=== PATIENT | male | born 1975 | race Caucasian/White ===

== ENCOUNTER 2018-06-24 07:39 | Emergency (ER) | payer SELFPAY ==
[~2018-06-24] VITALS: Ht 167.6 cm; Wt 63.5 kg
[~2018-06-24 07:39] MED LIST: AMIT25TA PO; TRAM50TA PO
[2018-06-24 08:00] VITALS: BP 124/90
--- NOTE | 2018-06-24 08:10 | PHYS DOC ---
Past Medical History Past Medical History: Other Additional Past Medical Histor: ULCERS, Cyclic vomiting syndrome Past Surgical History: Cholecystectomy Alcohol Use: None Drug Use: Marijuana Adult General Chief Complaint Chief Complaint: ABDOMINAL PAIN HPI HPI Patient is a 43 year old male presents for evaluation of vomiting since early this morning. He reports his had 3 or 4 episodes of emesis, has started to see some red blood streaks in the emesis. He has history of cyclic vomiting as well as gastric ulcers. Denies any dizziness or blood in stool. He reports some diffuse abdominal pain. Denies recent fevers or illness. Review of Systems Review of Systems Constitutional: Denies fever or chills [] Eyes: Denies change in visual acuity, redness, or eye pain [] HENT: Denies nasal congestion or sore throat [] Respiratory: Denies cough or shortness of breath [] Cardiovascular: No additional information not addressed in HPI [] GI: +VOMITING, ABD PAIN, HEMATEMESIS [] : Denies dysuria or hematuria [] Musculoskeletal: Denies back pain or joint pain [] Integument: Denies rash or skin lesions [] Neurologic: Denies headache, focal weakness or sensory changes [] Endocrine: Denies polyuria or polydipsia [] All other systems were reviewed and found to be within normal limits, except as documented in this note. Current Medications Current Medications Current Medications Medications (Trade) Dose Ordered Sig/Lauren Start Time Stop Time Status Last Admin Dose Admin Ciprofloxacin/ Dextrose 200 ml @ 200 mls/hr 1X ONCE 06/24/18 10:45 06/24/18 11:44 DC 06/24/18 11:02 200 MLS/HR Dicyclomine HCl (Bentyl) 20 mg 1X ONCE 06/24/18 08:15 06/24/18 08:16 DC 06/24/18 08:15 20 MG Haloperidol Lactate (Haldol Inj) 5 mg 1X ONCE 06/24/18 08:15 06/24/18 08:16 DC 06/24/18 08:15 5 MG Metoclopramide HCl (Reglan Vial) 10 mg 1X ONCE 06/24/18 08:15 06/24/18 08:16 DC 06/24/18 08:15 10 MG Metronidazole 100 ml @ 100 mls/hr 1X ONCE 06/24/18 10:45 06/24/18 11:44 DC 06/24/18 12:22 100 MLS/HR Sodium Chloride 1,000 ml @ 1,000 mls/hr 1X ONCE 06/24/18 08:15 06/24/18 09:14 DC 06/24/18 08:15 1,000 MLS/HR Allergies Allergies Allergies Coded Allergies Type Severity Reaction Last Updated Verified No Known Drug Allergies 09/25/15 No Physical Exam Physical Exam Constitutional: Well developed, well nourished, ILL APPEARING, UNCOMFORTABLE. [] HENT: Normocephalic, atraumatic, nose normal. [] Eyes: PERRLA, EOMI, conjunctiva normal, no discharge. [] Neck: Normal range of motion, no tenderness, supple, no stridor. [] Cardiovascular:Heart rate regular rhythm, no murmur [] Lungs & Thorax: Bilateral breath sounds clear to auscultation [] Abdomen: Bowel sounds normal, soft, LLQ TENDERNESS, no masses, no pulsatile masses. [] Skin: Warm, dry, no erythema, no rash, PALLOR. [] Neurologic: Alert and oriented X 3, normal motor function, normal sensory function, no focal deficits noted. [] Psychologic: Affect normal, judgement normal, mood normal. [] Current Patient Data Vital Signs Vital Signs Date Time Temp Pulse Resp B/P (MAP) Pulse Ox O2 Delivery O2 Flow Rate FiO2 06/24/18 08:00 97.9 102 16 124/90 (101) 100 Room Air 97.9 Lab Values Laboratory Tests Test 06/24/18 08:00 White Blood Count 18.7 x10^3/uL (4.0-11.0) H Red Blood Count 5.65 x10^6/uL (4.30-5.70) Hemoglobin 16.7 g/dL (13.0-17.5) Hematocrit 49.6 % (39.0-53.0) Mean Corpuscular Volume 88 fL (79-100) Mean Corpuscular Hemoglobin 30 pg (25-35) Mean Corpuscular Hemoglobin Concent 34 g/dL (31-37) Red Cell Distribution Width 13.6 % (11.5-14.5) Platelet Count 323 x10^3/uL (140-400) Neutrophils (%) (Auto) 90 % (31-73) H Lymphocytes (%) (Auto) 4 % (24-48) L Monocytes (%) (Auto) 6 % (0-9) Eosinophils (%) (Auto) 0 % (0-3) Basophils (%) (Auto) 0 % (0-3) Neutrophils # (Auto) 16.7 x10^3uL (1.8-7.7) H Lymphocytes # (Auto) 0.7 x10^3/uL (1.0-4.8) L Monocytes # (Auto) 1.2 x10^3/uL (0.0-1.1) H Eosinophils # (Auto) 0.0 x10^3/uL (0.0-0.7) Basophils # (Auto) 0.0 x10^3/uL (0.0-0.2) Segmented Neutrophils % 86 % (35-66) H Band Neutrophils % 2 % (0-9) Lymphocytes % 7 % (24-48) L Monocytes % 5 % (0-10) Platelet Estimate Adequate (ADEQUATE) Prothrombin Time 12.5 SEC (11.7-14.0) Prothrombin Time INR 1.0 (0.8-1.1) PTT 28 SEC (24-38) Sodium Level 142 mmol/L (136-145) Potassium Level 4.0 mmol/L (3.5-5.1) Chloride Level 102 mmol/L (98-107) Carbon Dioxide Level 23 mmol/L (21-32) Anion Gap 17 (6-14) H Blood Urea Nitrogen 26 mg/dL (8-26) Creatinine 1.6 mg/dL (0.7-1.3) H Estimated GFR (Cockcroft-Gault) 47.9 BUN/Creatinine Ratio 16 (6-20) Glucose Level 256 mg/dL (70-99) H Calcium Level 10.4 mg/dL (8.5-10.1) H Total Bilirubin 0.7 mg/dL (0.2-1.0) Aspartate Amino Transferase (AST) 17 U/L (15-37) Alanine Aminotransferase (ALT) 31 U/L (16-63) Alkaline Phosphatase 68 U/L (46-116) Total Protein 9.2 g/dL (6.4-8.2) H Albumin 5.1 g/dL (3.4-5.0) H Albumin/Globulin Ratio 1.2 (1.0-1.7) Lipase 56 U/L (73-393) L Acetone Level Neg (NEG) Laboratory Tests 06/24/18 08:00 Laboratory Tests 06/24/18 08:00 EKG EKG [] Radiology/Procedures Radiology/Procedures [REASON: abd pain, vomiting PROCEDURE: CT ABDOMEN PELVIS WO CONTRAST CT study of the abdomen and pelvis without contrast Clinical indications: Abdominal pain with nausea and vomiting. TECHNIQUE: Noncontrast helical CT scanning of the abdomen and pelvis was performed. Without contrast, the sensitivity to detect organ pathology and GI tract pathology is decreased. PQRS compliance Statement One or more of the following individualized dose reduction techniques were utilized for this study: 1. Automated exposure control 2. Adjustment of the mA and/or kV according to patient size 3. Use of iterative reconstruction technique COMPARISON: December 29, 2016. FINDINGS: The liver and spleen and pancreas are homogeneous in appearance on this noncontrast study. The gallbladder is normal and no extra hepatic biliary ductal dilatation is seen. No adrenal mass is evident. Small punctate nonobstructing stone of the upper pole of the left kidney is seen. No hydronephrosis or hydroureter is seen. Urinary bladder is not abnormally distended. No focal aneurysmal dilatation of the abdominal aorta is seen. No enlarged abdominal or pelvic lymphadenopathy is evident. The appendix is normal. No obstructive bowel pattern is evident. There is segmental wall thickening of the colon including the sigmoid colon and proximal and mid descending colon and splenic flexure and mid transverse colon. This could be due to incomplete distention but colitis is certainly possible. No free air or free fluid or mesenteric edema is seen. No lung base consolidation is evident. No lytic process is seen. IMPRESSION: Segmental wall thickening of the colon which could be due to incomplete distention or may be seen with colitis if there are clinical findings of such. No bowel obstruction or free air or free fluid is seen otherwise. The appendix is normal. Tiny punctate nonobstructing stone of the upper pole of the left kidney. Electronically signed by: Usman Rangel MD (06/24/2018 10:17 AM) [facility] DICTATED and SIGNED BY: USMAN RANGEL MD DATE: 06/24/18 1007 ] Course & Med Decision Making Course & Med Decision Making Pertinent Labs and Imaging studies reviewed. (See chart for details) [Patient was started on antibiotics for colitis, he is tolerating by mouth fluids and states he is feeling better, he does have a primary care physician, Dr. Rodney Quan and he will call on Tuesday to schedule follow-up appointment. Return to ER for new or worsening symptoms.] Diane Disclaimer Dragon Disclaimer This electronic medical record was generated, in whole or in part, using a voice recognition dictation system. Departure Departure Impression: Primary Impression: Colitis Additional Impressions: Chronic renal disease Vomiting Disposition: HOME, SELF-CARE Condition: STABLE Referrals: NO PCP (PCP) Patient Instructions: Colitis Scripts Ondansetron Hcl (ZOFRAN) 4 Mg Tablet 1 TAB PO Q6HRS, #20 TAB Prov: MATEO EDWARD APRN 06/24/18 Metronidazole (METRONIDAZOLE) 500 Mg Tablet 500 MG PO BID for 10 Days, #20 TAB Prov: MATEO EDWARD APRN 06/24/18 Ciprofloxacin Hcl (CIPRO) 500 Mg Tablet 1 TAB PO BID, #20 TAB Prov: MATEO EDWARD APRN 06/24/18 Problem Qualifiers MATEO EDWARD APRN Jun 24, 2018 08:10
[2018-06-24 08:14] LABS: BASO % 0 % (0-3); EOS % 0 % (0-3); HEMATOCRIT 49.6 % (39.0-53.0); HEMOGLOBIN 16.7 g/dL (13.0-17.5); LYMPH # 0.7 x10^3/uL (1.0-4.8); LYMPH % 4 % (24-48); MEAN CORPUSCULAR HEMOGLOBIN 30 pg (25-35); MEAN CORPUSCULAR HGB CONC 34 g/dL (31-37); MEAN CORPUSCULAR VOLUME 88 fL (79-100); MONO # 1.2 x10^3/uL (0.0-1.1); MONO % 6 % (0-9); NEUT # 16.7 x10^3uL (1.8-7.7); NEUT % 90 % (31-73); PLATELET COUNT 323 x10^3/uL (140-400); RED BLOOD COUNT 5.65 x10^6/uL (4.30-5.70); RED CELL DISTRIBUTION WIDTH 13.6 % (11.5-14.5); WHITE BLOOD COUNT 18.7 x10^3/uL (4.0-11.0)
[2018-06-24] MEDS ORDERED: METOCLOPRAMIDE HCL 10 MG/2 ML VIAL. IV ONE (08:15)
[2018-06-24] MEDS ORDERED: DICYCLOMINE 20 MG/2 ML AMPUL. IM ONE (08:15)
[2018-06-24] MEDS ORDERED: IV NORMAL SALINE 1000ML BAG 1,000 ML IV ONE (08:15)
[2018-06-24] MEDS ORDERED: HALOPERIDOL LACTATE 5 MG/ML VIAL. IVP ONE (08:15)
[2018-06-24 08:28] LABS: CALCIUM 10.4 mg/dL (8.5-10.1); CREATININE 1.6 mg/dL (0.7-1.3); GFR 47.9; PROTHROMBIN TIME PATIENT 12.5 SEC (11.7-14.0)
[2018-06-24 08:30] LABS: ALBUMIN 5.1 g/dL (3.4-5.0); ALBUMIN/GLOBULIN RATIO 1.2 (1.0-1.7); TOTAL BILIRUBIN 0.7 mg/dL (0.2-1.0); TOTAL PROTEIN 9.2 g/dL (6.4-8.2)
--- NOTE | 2018-06-24 10:22 | RAD ---
CT study of the abdomen and pelvis without contrast Clinical indications: Abdominal pain with nausea and vomiting. TECHNIQUE: Noncontrast helical CT scanning of the abdomen and pelvis was performed. Without contrast, the sensitivity to detect organ pathology and GI tract pathology is decreased. PQRS compliance Statement One or more of the following individualized dose reduction techniques were utilized for this study: 1. Automated exposure control 2. Adjustment of the mA and/or kV according to patient size 3. Use of iterative reconstruction technique COMPARISON: December 29, 2016. FINDINGS: The liver and spleen and pancreas are homogeneous in appearance on this noncontrast study. The gallbladder is normal and no extra hepatic biliary ductal dilatation is seen. No adrenal mass is evident. Small punctate nonobstructing stone of the upper pole of the left kidney is seen. No hydronephrosis or hydroureter is seen. Urinary bladder is not abnormally distended. No focal aneurysmal dilatation of the abdominal aorta is seen. No enlarged abdominal or pelvic lymphadenopathy is evident. The appendix is normal. No obstructive bowel pattern is evident. There is segmental wall thickening of the colon including the sigmoid colon and proximal and mid descending colon and splenic flexure and mid transverse colon. This could be due to incomplete distention but colitis is certainly possible. No free air or free fluid or mesenteric edema is seen. No lung base consolidation is evident. No lytic process is seen. IMPRESSION: Segmental wall thickening of the colon which could be due to incomplete distention or may be seen with colitis if there are clinical findings of such. No bowel obstruction or free air or free fluid is seen otherwise. The appendix is normal. Tiny punctate nonobstructing stone of the upper pole of the left kidney. Electronically signed by: Usman Rangel MD (06/24/2018 10:17 AM) [facility]
[2018-06-24] MEDS ORDERED: CIPROFLOXACIN 400MG PREMIX 200 ML IV ONE (10:45)
[2018-06-24] MEDS ORDERED: CIPR500T94 PO (11:04)
[2018-06-24] MEDS ORDERED: ONDA4TAB7 PO (11:04)
[2018-06-24] MEDS ORDERED: METR-84 PO (11:04)
[2018-06-24 11:33] LABS: % BANDS 2 % (0-9); % LYMPHS 7 % (24-48); % MONOS 5 % (0-10); % SEGS 86 % (35-66); PLT ESTIMATE ADEQUATE (ADEQUATE)
== END 2018-06-24 14:00 | disposition home or self-care (01) ==
LOC: ER 07:39
DX: K52.89 Other specified noninfective gastroenteritis and colitis (principal); N18.9 Chronic kidney disease, unspecified; K92.0 Hematemesis; Z90.49 Acquired absence of other specified parts of digestive tract
CPT/HCPCS: 36415; 74176; 80053; 82010; 83690; 85007; 85025; 85610; 85730; 96361; 96365; 96367; 96372; 96375; 99284; J0500; J0744; J1630; J2765; J3490; J7030

== ENCOUNTER 2018-10-20 20:02 | Observation (INO) | payer SELFPAY ==
[~2018-10-20] VITALS: Ht 167.6 cm; Wt 64.9 kg
[~2018-10-20 20:02] MED LIST changes: +CIPR500T94 PO; +METR-34 PO; +ONDA4TAB7 PO
--- NOTE | 2018-10-20 21:30 | PHYS DOC ---
Past Medical History Past Medical History: Other Additional Past Medical Histor: ULCERS, Cyclic vomiting syndrome Past Surgical History: Cholecystectomy Alcohol Use: None Drug Use: Marijuana Adult General Chief Complaint Chief Complaint: HEMATEMESIS/VOMITING BLOOD HPI HPI Patient is a 43 year old M who presents with vomiting. He says he has vomited 40 times today. Prior dx of cyclic vomiting. He says the top of his abd hurts, which is where he usually has pain. He had a streak of blood in his vomit which has also happened before. He reports having a normal EGD in the past after docs were concerned about ulcers. Pt denies drug use but per RN chart he admitted to smoking MJ today. Review of Systems Review of Systems Constitutional: Denies fever or chills Eyes: Denies change in visual acuity, redness, or eye pain HENT: Denies nasal congestion or sore throat Respiratory: Denies cough or shortness of breath Cardiovascular: No additional information not addressed in HPI GI: Endorses vomiting : Denies dysuria or hematuria Musculoskeletal: Denies back pain or joint pain Integument: Denies rash or skin lesions Neurologic: Denies headache, focal weakness or sensory changes All other systems were reviewed and found to be within normal limits, except as documented in this note. Current Medications Current Medications Current Medications Medications (Trade) Dose Ordered Sig/Lauren Start Time Stop Time Status Last Admin Dose Admin Diphenhydramine HCl (Benadryl) 25 mg 1X ONCE 10/20/18 22:00 10/20/18 22:01 DC 10/20/18 21:55 25 MG Haloperidol Lactate (Haldol Inj) 5 mg 1X ONCE 10/20/18 22:00 10/20/18 22:01 DC 10/20/18 21:55 5 MG Ondansetron HCl (Zofran) 4 mg 1X ONCE 10/20/18 22:00 10/20/18 22:01 DC 10/20/18 21:55 4 MG Sodium Chloride 1,000 ml @ 1,000 mls/hr 1X ONCE 10/20/18 22:00 10/20/18 22:59 DC 10/20/18 21:55 1,000 MLS/HR Allergies Allergies Allergies Coded Allergies Type Severity Reaction Last Updated Verified No Known Drug Allergies 09/25/15 No Physical Exam Physical Exam Constitutional: Well developed, well nourished, no acute distress, non-toxic appearance. HENT: Normocephalic, atraumatic, bilateral external ears normal, oropharynx moist, no oral exudates, nose normal. Eyes: PERRLA, EOMI, conjunctiva normal, no discharge. Neck: Normal range of motion, no tenderness, supple, no stridor. Cardiovascular:Heart rate regular rhythm, no murmur Lungs & Thorax: Bilateral breath sounds clear to auscultation Abdomen: Abd soft, epigastric ttp, non distended, no rebound, no guarding Skin: Warm, dry, no erythema, no rash. Back: No tenderness, no CVA tenderness. Extremities: No tenderness, no cyanosis, no clubbing, ROM intact, no edema. Neurologic: Alert and oriented X 3, normal motor function, normal sensory function, no focal deficits noted. Psychologic: Affect normal, judgement normal, mood normal. Current Patient Data Vital Signs Vital Signs Date Time Temp Pulse Resp B/P (MAP) Pulse Ox O2 Delivery O2 Flow Rate FiO2 10/20/18 22:45 90 31 144/83 (103) 100 Room Air 10/20/18 20:10 98.2 98.2 Lab Values Laboratory Tests Test 10/20/18 21:12 White Blood Count 23.8 x10^3/uL (4.0-11.0) H Red Blood Count 5.89 x10^6/uL (4.30-5.70) H Hemoglobin 17.3 g/dL (13.0-17.5) Hematocrit 50.8 % (39.0-53.0) Mean Corpuscular Volume 86 fL (79-100) Mean Corpuscular Hemoglobin 29 pg (25-35) Mean Corpuscular Hemoglobin Concent 34 g/dL (31-37) Red Cell Distribution Width 13.6 % (11.5-14.5) Platelet Count 314 x10^3/uL (140-400) Neutrophils (%) (Auto) 89 % (31-73) H Lymphocytes (%) (Auto) 3 % (24-48) L Monocytes (%) (Auto) 8 % (0-9) Eosinophils (%) (Auto) 0 % (0-3) Basophils (%) (Auto) 1 % (0-3) Neutrophils # (Auto) 21.1 x10^3uL (1.8-7.7) H Lymphocytes # (Auto) 0.7 x10^3/uL (1.0-4.8) L Monocytes # (Auto) 1.9 x10^3/uL (0.0-1.1) H Eosinophils # (Auto) 0.0 x10^3/uL (0.0-0.7) Basophils # (Auto) 0.1 x10^3/uL (0.0-0.2) Segmented Neutrophils % 88 % (35-66) H Lymphocytes % 5 % (24-48) L Monocytes % 7 % (0-10) Platelet Estimate Adequate (ADEQUATE) Large Platelets Occ Polychromasia Slight Anisocytosis Slight Sodium Level 131 mmol/L (136-145) L Potassium Level 4.0 mmol/L (3.5-5.1) Chloride Level 88 mmol/L (98-107) L Carbon Dioxide Level 24 mmol/L (21-32) Anion Gap 19 (6-14) H Blood Urea Nitrogen 60 mg/dL (8-26) H Creatinine 2.8 mg/dL (0.7-1.3) H Estimated GFR (Cockcroft-Gault) 25.1 BUN/Creatinine Ratio 21 (6-20) H Glucose Level 161 mg/dL (70-99) H Calcium Level 11.3 mg/dL (8.5-10.1) H Total Bilirubin 1.9 mg/dL (0.2-1.0) H Aspartate Amino Transferase (AST) 22 U/L (15-37) Alanine Aminotransferase (ALT) 30 U/L (16-63) Alkaline Phosphatase 75 U/L (46-116) Total Protein 9.2 g/dL (6.4-8.2) H Albumin 5.3 g/dL (3.4-5.0) H Albumin/Globulin Ratio 1.4 (1.0-1.7) Lipase 69 U/L (73-393) L Laboratory Tests 10/20/18 21:12 Laboratory Tests 10/20/18 21:12 EKG EKG [] Radiology/Procedures Radiology/Procedures [] Course & Med Decision Making Course & Med Decision Making Pertinent Labs and Imaging studies reviewed. (See chart for details) 43 y/o M presents for vomiting - h/o cyclic vomiting. Nontoxic appearing, abd exam benign. Treat with haldol, benadryl, zofran, NS bolus. CBC, CMP, Lipase, UA, UDS EKG: sinus tach 102 bpm, no ST elev or depr, nrml intervals, QTc 395. Admit for acute on chronic kidney failure and dehydration. Dragon Disclaimer Dragon Disclaimer This electronic medical record was generated, in whole or in part, using a voice recognition dictation system. Departure Departure Impression: Primary Impression: Nausea & vomiting Additional Impression: Acute on chronic renal failure Disposition: ADMITTED INPATIENT Admitting Physician: Dustin Dangelo Condition: STABLE Referrals: NO PCP (PCP) Problem Qualifiers NINFA MCLAUGHLIN MD October 20, 2018 21:30
[2018-10-20 21:38] LABS: BASO # 0.1 x10^3/uL (0.0-0.2); BASO % 1 % (0-3); EOS % 0 % (0-3); HEMATOCRIT 50.8 % (39.0-53.0); HEMOGLOBIN 17.3 g/dL (13.0-17.5); LYMPH # 0.7 x10^3/uL (1.0-4.8); LYMPH % 3 % (24-48); MEAN CORPUSCULAR HEMOGLOBIN 29 pg (25-35); MEAN CORPUSCULAR HGB CONC 34 g/dL (31-37); MEAN CORPUSCULAR VOLUME 86 fL (79-100); MONO # 1.9 x10^3/uL (0.0-1.1); MONO % 8 % (0-9); NEUT # 21.1 x10^3uL (1.8-7.7); NEUT % 89 % (31-73); PLATELET COUNT 314 x10^3/uL (140-400); RED BLOOD COUNT 5.89 x10^6/uL (4.30-5.70); RED CELL DISTRIBUTION WIDTH 13.6 % (11.5-14.5); WHITE BLOOD COUNT 23.8 x10^3/uL (4.0-11.0)
[2018-10-20 21:47] LABS: CALCIUM 11.3 mg/dL (8.5-10.1); CREATININE 2.8 mg/dL (0.7-1.3); GFR 25.1
[2018-10-20 21:53] LABS: ALBUMIN 5.3 g/dL (3.4-5.0); ALBUMIN/GLOBULIN RATIO 1.4 (1.0-1.7); TOTAL BILIRUBIN 1.9 mg/dL (0.2-1.0); TOTAL PROTEIN 9.2 g/dL (6.4-8.2)
[2018-10-20] MEDS ORDERED: IV NORMAL SALINE 1000ML BAG 1,000 ML IV ONE (22:00)
[2018-10-20] MEDS ORDERED: HALOPERIDOL LACTATE 5 MG/ML VIAL. IVP ONE (22:00)
[2018-10-20] MEDS ORDERED: diphenhydrAMINE 50 MG/ML VIAL IVP ONE (22:00)
[2018-10-20] MEDS ORDERED: ONDANSETRON PF 4 MG/2 ML VIAL. IV ONE (22:00)
[2018-10-20 22:56] LABS: % LYMPHS 5 % (24-48); % MONOS 7 % (0-10); % SEGS 88 % (35-66); ANISOCYTOSIS SLIGHT; PLT ESTIMATE ADEQUATE (ADEQUATE); POLYCHROMASIA SLIGHT
[2018-10-21] VITALS (7 sets, daily range): BP systolic 116–137; BP diastolic 67–89
--- NOTE | 2018-10-21 00:55 | NUR ---
The patient, SERGO MARIANO, 43 y/o, M admitted by MATIAS HOLMAN MD, was given written information regarding hospital policies, unit procedures and contact persons. Valuables were checked and left in the room. .
[2018-10-21] MEDS ORDERED: ACETAMINOPHEN 325 MG TABLET. PO PRN (01:00)
[2018-10-21] MEDS: ONDANSETRON PF 4 MG/2 ML VIAL. IV PRN ×3 (06:10→22:22)
--- NOTE | 2018-10-21 10:10 | PDOC1 ---
History and Physical Date of Admission Date of Admission DATE: 10/21/18 TIME: 10:10 Identification/Chief Complaint Chief Complaint seen in er, 43 year old M who presents with vomiting. He says he has vomited 40 times 10/20 . Prior dx of cyclic vomiting. He says the top of his abd hurts, which is where he usually has pain. He had a streak of blood in his vomit which has also happened before. He reports having a normal EGD in the past after docs were concerned about ulcers. Pt denies drug use but per RN chart he admitted to smoking MJ 10/20. NOTED TO [facility] IN ER Past Medical History Past Medical History Past Medical History Past Medical History Past Medical History: Other Additional Past Medical Histor: ULCERS, Cyclic vomiting syndrome Past Surgical History: Cholecystectomy Alcohol Use: None Drug Use: Marijuana family hx htn Cardiovascular: No pertinent hx Pulmonary: No pertinent hx GI: GERD, Other Psych: No pertinent hx Musculoskeletal: Osteoarthritis Infectious disease: No pertinent hx Renal/: No pertinent hx Endocrine: No pertinent hx Past Surgical History Past Surgical History: Other Family History Family History: No Significant, Hypertension Social History Smoke: <1 pack per day ALCOHOL: none Drugs: Marijuana Current Problem List Problem List Problems Medical Problems: (1) Acute on chronic renal failure Status: Acute Current Medications Current Medications Current Medications Ondansetron HCl (Zofran) 4 mg 1X ONCE IV Last administered on 10/20/18at 21:55; Start 10/20/18 at 22:00; Stop 10/20/18 at 22:01; Status DC Haloperidol Lactate (Haldol Inj) 5 mg 1X ONCE IVP Last administered on 10/20/18at 21:55; Start 10/20/18 at 22:00; Stop 10/20/18 at 22:01; Status DC Diphenhydramine HCl (Benadryl) 25 mg 1X ONCE IVP Last administered on 10/20/18at 21:55; Start 10/20/18 at 22:00; Stop 10/20/18 at 22:01; Status DC Sodium Chloride 1,000 ml @ 1,000 mls/hr 1X ONCE IV Last administered on 10/20/18at 21:55; Start 10/20/18 at 22:00; Stop 10/20/18 at 22:59; Status DC Acetaminophen (Tylenol) 650 mg PRN Q6HRS PRN PO fever Last administered on 10/21/18at 00:59; Start 10/21/18 at 01:00 Ondansetron HCl (Zofran) 4 mg PRN Q6HRS PRN IV NAUSEA/VOMITING 1ST CHOICE Last administered on 10/21/18at 06:10; Start 10/21/18 at 01:00 Active Scripts Active Zofran (Ondansetron Hcl) 4 Mg Tablet 1 Tab PO Q6HRS Metronidazole 500 Mg Tablet 500 Mg PO BID 10 Days Cipro (Ciprofloxacin Hcl) 500 Mg Tablet 1 Tab PO BID Allergies Allergies: Coded Allergies: No Known Drug Allergies (Unverified , 09/25/15) ROS Review of System Review of Systems Review of Systems Constitutional: MILD fever or chills Eyes: Denies change in visual acuity, redness, or eye pain HENT: Denies nasal congestion or sore throat Respiratory: Denies cough or shortness of breath Cardiovascular: No additional information not addressed in HPI GI: Endorses vomiting : Denies dysuria or hematuria Musculoskeletal: Denies back pain or joint pain Integument: Denies rash or skin lesions Neurologic: Denies headache, focal weakness or sensory changes 14 pt systems were reviewed and found to be within normal limits, except as documented Hematological and Lymphatic: No: Bleeding Problems, Blood Clots, Blood Transfusions, Brusing, Night Sweats, Pallor, Swollen Lymph Nodes, Other Cardiovascular: No Chest Pain, No Palpitations, No Orthopnea, No Paroxysmal Noc. Dyspnea, No Edema, No Lt Headedness, No Other Gastrointestinal: Yes Nausea, Yes Vomiting, Yes Abdominal Pain Musculoskeletal: No Gait Disturbance, No Joint Pain, No Joint Stiffness, No Joint Swelling, No Muscle Pain, No Muscular Weakness, No Pain In:, No Swelling In:, No Other Physical Exam Physical Exam Physical Exam Physical Exam Constitutional: Well developed, well nourished, MILD acute distress, non-toxic appearance. HENT: Normocephalic, atraumatic, bilateral external ears normal, oropharynx moist, no oral exudates, nose normal. Eyes: PERRLA, EOMI, conjunctiva normal, no discharge. Neck: Normal range of motion, no tenderness, supple, no stridor. Cardiovascular:Heart rate regular rhythm, no murmur Lungs & Thorax: Bilateral breath sounds clear to auscultation Abdomen: Abd soft, epigastric ttp, non distended, no rebound, no guarding Skin: Warm, dry, no erythema, no rash. Back: No tenderness, no CVA tenderness. Extremities: No tenderness, no cyanosis, no clubbing, ROM intact, no edema. Neurologic: Alert and oriented X 3, normal motor function, normal sensory function, no focal deficits noted. Psychologic: Affect normal, judgement normal, mood normal. General: Oriented X3, Cooperative, mild distress HEENT: Atraumatic, PERRLA Abdomen: Normal bowel sounds Extremities: No cyanosis Neuro: Normal speech, Cranial nerves 3-12 NL Psych/Mental Status: Mental status NL, Mood NL Vitals Vitals Vital Signs Date Time Temp Pulse Resp B/P (MAP) Pulse Ox O2 Delivery O2 Flow Rate FiO2 10/21/18 08:00 Room Air 10/21/18 07:00 96.9 80 18 137/81 (99) 93 96.9 Labs Labs Laboratory Tests Test 10/20/18 21:12 White Blood Count 23.8 x10^3/uL (4.0-11.0) Red Blood Count 5.89 x10^6/uL (4.30-5.70) Hemoglobin 17.3 g/dL (13.0-17.5) Hematocrit 50.8 % (39.0-53.0) Mean Corpuscular Volume 86 fL (79-100) Mean Corpuscular Hemoglobin 29 pg (25-35) Mean Corpuscular Hemoglobin Concent 34 g/dL (31-37) Red Cell Distribution Width 13.6 % (11.5-14.5) Platelet Count 314 x10^3/uL (140-400) Neutrophils (%) (Auto) 89 % (31-73) Lymphocytes (%) (Auto) 3 % (24-48) Monocytes (%) (Auto) 8 % (0-9) Eosinophils (%) (Auto) 0 % (0-3) Basophils (%) (Auto) 1 % (0-3) Neutrophils # (Auto) 21.1 x10^3uL (1.8-7.7) Lymphocytes # (Auto) 0.7 x10^3/uL (1.0-4.8) Monocytes # (Auto) 1.9 x10^3/uL (0.0-1.1) Eosinophils # (Auto) 0.0 x10^3/uL (0.0-0.7) Basophils # (Auto) 0.1 x10^3/uL (0.0-0.2) Segmented Neutrophils % 88 % (35-66) Lymphocytes % 5 % (24-48) Monocytes % 7 % (0-10) Platelet Estimate Adequate (ADEQUATE) Large Platelets Occ Polychromasia Slight Anisocytosis Slight Sodium Level 131 mmol/L (136-145) Potassium Level 4.0 mmol/L (3.5-5.1) Chloride Level 88 mmol/L (98-107) Carbon Dioxide Level 24 mmol/L (21-32) Anion Gap 19 (6-14) Blood Urea Nitrogen 60 mg/dL (8-26) Creatinine 2.8 mg/dL (0.7-1.3) Estimated GFR (Cockcroft-Gault) 25.1 BUN/Creatinine Ratio 21 (6-20) Glucose Level 161 mg/dL (70-99) Calcium Level 11.3 mg/dL (8.5-10.1) Total Bilirubin 1.9 mg/dL (0.2-1.0) Aspartate Amino Transf (AST/SGOT) 22 U/L (15-37) Alanine Aminotransferase (ALT/SGPT) 30 U/L (16-63) Alkaline Phosphatase 75 U/L (46-116) Total Protein 9.2 g/dL (6.4-8.2) Albumin 5.3 g/dL (3.4-5.0) Albumin/Globulin Ratio 1.4 (1.0-1.7) Lipase 69 U/L (73-393) Laboratory Tests Test 10/20/18 21:12 White Blood Count 23.8 x10^3/uL (4.0-11.0) Red Blood Count 5.89 x10^6/uL (4.30-5.70) Hemoglobin 17.3 g/dL (13.0-17.5) Hematocrit 50.8 % (39.0-53.0) Mean Corpuscular Volume 86 fL (79-100) Mean Corpuscular Hemoglobin 29 pg (25-35) Mean Corpuscular Hemoglobin Concent 34 g/dL (31-37) Red Cell Distribution Width 13.6 % (11.5-14.5) Platelet Count 314 x10^3/uL (140-400) Neutrophils (%) (Auto) 89 % (31-73) Lymphocytes (%) (Auto) 3 % (24-48) Monocytes (%) (Auto) 8 % (0-9) Eosinophils (%) (Auto) 0 % (0-3) Basophils (%) (Auto) 1 % (0-3) Neutrophils # (Auto) 21.1 x10^3uL (1.8-7.7) Lymphocytes # (Auto) 0.7 x10^3/uL (1.0-4.8) Monocytes # (Auto) 1.9 x10^3/uL (0.0-1.1) Eosinophils # (Auto) 0.0 x10^3/uL (0.0-0.7) Basophils # (Auto) 0.1 x10^3/uL (0.0-0.2) Segmented Neutrophils % 88 % (35-66) Lymphocytes % 5 % (24-48) Monocytes % 7 % (0-10) Platelet Estimate Adequate (ADEQUATE) Large Platelets Occ Polychromasia Slight Anisocytosis Slight Sodium Level 131 mmol/L (136-145) Potassium Level 4.0 mmol/L (3.5-5.1) Chloride Level 88 mmol/L (98-107) Carbon Dioxide Level 24 mmol/L (21-32) Anion Gap 19 (6-14) Blood Urea Nitrogen 60 mg/dL (8-26) Creatinine 2.8 mg/dL (0.7-1.3) Estimated GFR (Cockcroft-Gault) 25.1 BUN/Creatinine Ratio 21 (6-20) Glucose Level 161 mg/dL (70-99) Calcium Level 11.3 mg/dL (8.5-10.1) Total Bilirubin 1.9 mg/dL (0.2-1.0) Aspartate Amino Transf (AST/SGOT) 22 U/L (15-37) Alanine Aminotransferase (ALT/SGPT) 30 U/L (16-63) Alkaline Phosphatase 75 U/L (46-116) Total Protein 9.2 g/dL (6.4-8.2) Albumin 5.3 g/dL (3.4-5.0) Albumin/Globulin Ratio 1.4 (1.0-1.7) Lipase 69 U/L (73-393) Images Images CT study of the abdomen and pelvis without contrast Clinical indications: Abdominal pain with nausea and vomiting. TECHNIQUE: Noncontrast helical CT scanning of the abdomen and pelvis was performed. Without contrast, the sensitivity to detect organ pathology and GI tract pathology is decreased. PQRS compliance Statement One or more of the following individualized dose reduction techniques were utilized for this study: 1. Automated exposure control 2. Adjustment of the mA and/or kV according to patient size 3. Use of iterative reconstruction technique COMPARISON: December 29, 2016. FINDINGS: The liver and spleen and pancreas are homogeneous in appearance on this noncontrast study. The gallbladder is normal and no extra hepatic biliary ductal dilatation is seen. No adrenal mass is evident. Small punctate nonobstructing stone of the upper pole of the left kidney is seen. No hydronephrosis or hydroureter is seen. Urinary bladder is not abnormally distended. No focal aneurysmal dilatation of the abdominal aorta is seen. No enlarged abdominal or pelvic lymphadenopathy is evident. The appendix is normal. No obstructive bowel pattern is evident. There is segmental wall thickening of the colon including the sigmoid colon and proximal and mid descending colon and splenic flexure and mid transverse colon. This could be due to incomplete distention but colitis is certainly possible. No free air or free fluid or mesenteric edema is seen. No lung base consolidation is evident. No lytic process is seen. IMPRESSION: Segmental wall thickening of the colon which could be due to incomplete distention or may be seen with colitis if there are clinical findings of such. No bowel obstruction or free air or free fluid is seen otherwise. The appendix is normal. Tiny punctate nonobstructing stone of the upper pole of the left kidney. Electronically signed by: Steve Rangel MD (06/24/2018 10:17 AM) [facility] DICTATED and SIGNED BY: STEVE RANGEL MD DATE: 06/24/18 1007 VTE Prophylaxis Ordered VTE Prophylaxis Devices: Yes VTE Pharmacological Prophylaxi: Yes Assessment/Plan Assessment/Plan Impression: Nausea & vomiting INTRACTABLE Acute on chronic renal failure THC ABUSE HX Colitis , nonspecific ABD PAIN, CONCERN FOR PUD LEUKOCYTOSIS ADMITTED iv fluid support iv zofran q 4 hrs prn GI CONSULT IV PROTONIX AVOID THC AM LABS CT ABD/PELVIS, TODAY NO NSAIDS DVT PROPHYLAXIS Nephrology consult 73 MIN PT EXAM, CHART REVIEW, > 50% OF TIME SPENT WITH EXAM, CHART REVIEW, PT CARE COORDINATION MATIAS HOLMAN MD October 21, 2018 10:10
[2018-10-21] MEDS ORDERED: IV NORMAL SALINE 1000ML BAG 1,000 ML IV ONE (11:15)
[2018-10-21] MEDS: IV NORMAL SALINE 1000ML BAG 1,000 ML IV SCH ×2 (11:30→12:00)
[2018-10-21] MEDS: PANTOPRAZOLE IV PUSH 40 MG VIAL. IVP SCH (11:33)
[2018-10-21] MEDS: ENOXAPARIN 30 MG/0.3 ML SYRINGE. SQ SCH (11:33)
[2018-10-21] MEDS: fentaNYL PF VIAL 100 MCG/2 ML VIAL IV PRN ×4 (11:34→22:22)
--- NOTE | 2018-10-21 13:54 | PDOC2 ---
CONSULT Date of Consult Date of Consult DATE: 10/21/18 TIME: 13:51 Reason for Consult Reason for Consult: Acute renal failure Referring Physician Referring Physician: Dr. Gerard Identification/Chief Complaint Chief Complaint Nausea vomiting Source Source: Chart review, Patient History of Present Illness Reason for Visit: 43-year-old gentleman with known history of cyclical vomiting associated with marijuana use. Presented to the ER after he claims he more vomited almost 40 times over the last few days. He does take occasional NSAIDs as well as calcium-based antacids. He says the top of his abd hurts, which is where he usually has pain. He had a streak of blood in his vomit which has also happened before. He reported to the ER about having a normal EGD in the past. He denies known history of renal insufficiency per se. Past Medical History Cardiovascular: No pertinent hx Pulmonary: No pertinent hx GI: GERD, Other Psych: No pertinent hx Musculoskeletal: Osteoarthritis Infectious disease: No pertinent hx Renal/: No pertinent hx Endocrine: No pertinent hx Past Surgical History Past Surgical History: Other Family History Family History: No Significant, Hypertension Social History <1 pack per day ALCOHOL: none Drugs: Marijuana Current Problem List Problem List Problems Medical Problems: (1) Acute on chronic renal failure Status: Acute Current Medications Current Medications Current Medications Ondansetron HCl (Zofran) 4 mg 1X ONCE IV Last administered on 10/20/18at 21:55; Start 10/20/18 at 22:00; Stop 10/20/18 at 22:01; Status DC Haloperidol Lactate (Haldol Inj) 5 mg 1X ONCE IVP Last administered on 10/20/18 21:55; Start 10/20/18 at 22:00; Stop 10/20/18 at 22:01; Status DC Diphenhydramine HCl (Benadryl) 25 mg 1X ONCE IVP Last administered on 10/20/18at 21:55; Start 10/20/18 at 22:00; Stop 10/20/18 at 22:01; Status DC Sodium Chloride 1,000 ml @ 1,000 mls/hr 1X ONCE IV Last administered on 10/20/18at 21:55; Start 10/20/18 at 22:00; Stop 10/20/18 at 22:59; Status DC Acetaminophen (Tylenol) 650 mg PRN Q6HRS PRN PO fever Last administered on 10/21/18 00:59; Start 10/21/18 at 01:00 Ondansetron HCl (Zofran) 4 mg PRN Q6HRS PRN IV NAUSEA/VOMITING 1ST CHOICE Last administered on 10/21/18 11:33; Start 10/21/18 at 01:00 Sodium Chloride 1,000 ml @ 125 mls/hr 1X ONCE IV Last administered on 10/21/18 11:34; Start 10/21/18 at 11:15; Stop 10/21/18 at 19:14 Fentanyl Citrate (Fentanyl 2ml Vial) 50 mcg PRN Q3HRS PRN IV PAIN Last administered on 10/21/18 11:34; Start 10/21/18 at 11:15 Enoxaparin Sodium (Lovenox 30mg Syringe) 30 mg Q24H SQ Last administered on 10/21/18 11:33; Start 10/21/18 at 12:00 Pantoprazole Sodium (PROTONIX VIAL for IV PUSH) 40 mg DAILYAC IVP Last administered on 10/21/18 11:33; Start 10/21/18 at 12:00 Sodium Chloride 1,000 ml @ 2,000 mls/hr Q30M IV ; Start 10/21/18 at 11:30; Stop 10/21/18 at 12:23; Status DC Active Scripts Active Zofran (Ondansetron Hcl) 4 Mg Tablet 1 Tab PO Q6HRS Metronidazole 500 Mg Tablet 500 Mg PO BID 10 Days Cipro (Ciprofloxacin Hcl) 500 Mg Tablet 1 Tab PO BID Allergies Allergies: Coded Allergies: No Known Drug Allergies (Unverified , 09/25/15) ROS Review of System As per history of present illness Physical Exam Physical Exam GEN: Awake, Oriented x 3, In no distress EYES: Vision Unchanged, Conjunctiva Normal EN: No EN Drainage, Mucous Membranes moist NECK: no JVD, no JVP, Supple, no Thyromegaly CVS: S1S2, no Murmur, No Gallop, No Rub,no Edema RESP: no Rales, no Rhonchi,no Acc. Muscle Use GI: BS + ve, NO Bruit, Non Tender, Non Distended : no CVA tenderness, no Suprapubic Tenderness Vital Signs Vital Signs Date Time Temp Pulse Resp B/P (MAP) Pulse Ox O2 Delivery O2 Flow Rate FiO2 10/21/18 11:34 Room Air 10/21/18 11:00 98.8 88 18 136/89 (105) 96 98.8 Assessment & Plan Acute kidney injury: Suspect volume depletion associated with nausea vomiting. Continue IV fluids as you've ordered. Hypercalcemia suspected early due to severe intravascular volume depletion continue IV fluids and reevaluate. Antacid use may have contributed to the same. Volume depletion: IV fluids as you're doing watch trend. Urine outputs picking up Labs Labs Laboratory Tests Test 10/20/18 21:12 White Blood Count 23.8 x10^3/uL (4.0-11.0) Red Blood Count 5.89 x10^6/uL (4.30-5.70) Hemoglobin 17.3 g/dL (13.0-17.5) Hematocrit 50.8 % (39.0-53.0) Mean Corpuscular Volume 86 fL (79-100) Mean Corpuscular Hemoglobin 29 pg (25-35) Mean Corpuscular Hemoglobin Concent 34 g/dL (31-37) Red Cell Distribution Width 13.6 % (11.5-14.5) Platelet Count 314 x10^3/uL (140-400) Neutrophils (%) (Auto) 89 % (31-73) Lymphocytes (%) (Auto) 3 % (24-48) Monocytes (%) (Auto) 8 % (0-9) Eosinophils (%) (Auto) 0 % (0-3) Basophils (%) (Auto) 1 % (0-3) Neutrophils # (Auto) 21.1 x10^3uL (1.8-7.7) Lymphocytes # (Auto) 0.7 x10^3/uL (1.0-4.8) Monocytes # (Auto) 1.9 x10^3/uL (0.0-1.1) Eosinophils # (Auto) 0.0 x10^3/uL (0.0-0.7) Basophils # (Auto) 0.1 x10^3/uL (0.0-0.2) Segmented Neutrophils % 88 % (35-66) Lymphocytes % 5 % (24-48) Monocytes % 7 % (0-10) Platelet Estimate Adequate (ADEQUATE) Large Platelets Occ Polychromasia Slight Anisocytosis Slight Sodium Level 131 mmol/L (136-145) Potassium Level 4.0 mmol/L (3.5-5.1) Chloride Level 88 mmol/L (98-107) Carbon Dioxide Level 24 mmol/L (21-32) Anion Gap 19 (6-14) Blood Urea Nitrogen 60 mg/dL (8-26) Creatinine 2.8 mg/dL (0.7-1.3) Estimated GFR (Cockcroft-Gault) 25.1 BUN/Creatinine Ratio 21 (6-20) Glucose Level 161 mg/dL (70-99) Calcium Level 11.3 mg/dL (8.5-10.1) Total Bilirubin 1.9 mg/dL (0.2-1.0) Aspartate Amino Transf (AST/SGOT) 22 U/L (15-37) Alanine Aminotransferase (ALT/SGPT) 30 U/L (16-63) Alkaline Phosphatase 75 U/L (46-116) Total Protein 9.2 g/dL (6.4-8.2) Albumin 5.3 g/dL (3.4-5.0) Albumin/Globulin Ratio 1.4 (1.0-1.7) Lipase 69 U/L (73-393) Laboratory Tests Test 10/20/18 21:12 White Blood Count 23.8 x10^3/uL (4.0-11.0) Red Blood Count 5.89 x10^6/uL (4.30-5.70) Hemoglobin 17.3 g/dL (13.0-17.5) Hematocrit 50.8 % (39.0-53.0) Mean Corpuscular Volume 86 fL (79-100) Mean Corpuscular Hemoglobin 29 pg (25-35) Mean Corpuscular Hemoglobin Concent 34 g/dL (31-37) Red Cell Distribution Width 13.6 % (11.5-14.5) Platelet Count 314 x10^3/uL (140-400) Neutrophils (%) (Auto) 89 % (31-73) Lymphocytes (%) (Auto) 3 % (24-48) Monocytes (%) (Auto) 8 % (0-9) Eosinophils (%) (Auto) 0 % (0-3) Basophils (%) (Auto) 1 % (0-3) Neutrophils # (Auto) 21.1 x10^3uL (1.8-7.7) Lymphocytes # (Auto) 0.7 x10^3/uL (1.0-4.8) Monocytes # (Auto) 1.9 x10^3/uL (0.0-1.1) Eosinophils # (Auto) 0.0 x10^3/uL (0.0-0.7) Basophils # (Auto) 0.1 x10^3/uL (0.0-0.2) Segmented Neutrophils % 88 % (35-66) Lymphocytes % 5 % (24-48) Monocytes % 7 % (0-10) Platelet Estimate Adequate (ADEQUATE) Large Platelets Occ Polychromasia Slight Anisocytosis Slight Sodium Level 131 mmol/L (136-145) Potassium Level 4.0 mmol/L (3.5-5.1) Chloride Level 88 mmol/L (98-107) Carbon Dioxide Level 24 mmol/L (21-32) Anion Gap 19 (6-14) Blood Urea Nitrogen 60 mg/dL (8-26) Creatinine 2.8 mg/dL (0.7-1.3) Estimated GFR (Cockcroft-Gault) 25.1 BUN/Creatinine Ratio 21 (6-20) Glucose Level 161 mg/dL (70-99) Calcium Level 11.3 mg/dL (8.5-10.1) Total Bilirubin 1.9 mg/dL (0.2-1.0) Aspartate Amino Transf (AST/SGOT) 22 U/L (15-37) Alanine Aminotransferase (ALT/SGPT) 30 U/L (16-63) Alkaline Phosphatase 75 U/L (46-116) Total Protein 9.2 g/dL (6.4-8.2) Albumin 5.3 g/dL (3.4-5.0) Albumin/Globulin Ratio 1.4 (1.0-1.7) Lipase 69 U/L (73-393) Review All relevant outside records, renal labs, imaging studies, telemetry/EKG's were reviewed. RUI CHOW MD October 21, 2018 13:54
[2018-10-21] MEDS ORDERED: MAGNESIUM SULFATE 2GM 50 ML IV PRN (14:00)
--- NOTE | 2018-10-21 15:40 | PDOC2 ---
GI CONSULT Reason For Consult: N/V HPI: HPI: 43 year old M who presents with vomiting. He says he has vomited 40 times 10/20 . Prior dx of cyclic vomiting. He says the top of his abd hurts, which is where he usually has pain. He had a streak of blood in his vomit which has also happened before. He reports having a normal EGD in the past after docs were concerned about ulcers. Pt denies drug use but per RN chart he admitted to smoking MJ 10/20. NOTED TO HAVE KOBE IN ER PMH: PMH: Past Medical History Past Medical History: Other Additional Past Medical Histor: ULCERS, Cyclic vomiting syndrome Past Surgical History: Cholecystectomy Alcohol Use: None Drug Use: Marijuana Cardiovascular: No pertinent hx Pulmonary: No pertinent hx GI: GERD, cyclical vomiting Psych: No pertinent hx Musculoskeletal: Osteoarthritis Infectious disease: No pertinent hx Renal/: No pertinent hx Endocrine: No pertinent hx Past Surgical History Past Surgical History: rolly Family History Family History: No Significant, Hypertension Social History Smoke: <1 pack per day ALCOHOL: none Drugs: Marijuana Current Medications Ondansetron HCl (Zofran) 4 mg 1X ONCE IV Last administered on 10/20/18at 21:55; Start 10/20/18 at 22:00; Stop 10/20/18 at 22:01; Status DC Haloperidol Lactate (Haldol Inj) 5 mg 1X ONCE IVP Last administered on 10/20/18 21:55; Start 10/20/18 at 22:00; Stop 10/20/18 at 22:01; Status DC Diphenhydramine HCl (Benadryl) 25 mg 1X ONCE IVP Last administered on 10/20/18 21:55; Start 10/20/18 at 22:00; Stop 10/20/18 at 22:01; Status DC Sodium Chloride 1,000 ml @ 1,000 mls/hr 1X ONCE IV Last administered on 10/20/18at 21:55; Start 10/20/18 at 22:00; Stop 10/20/18 at 22:59; Status DC Acetaminophen (Tylenol) 650 mg PRN Q6HRS PRN PO fever Last administered on 10/21/18at 00:59; Start 10/21/18 at 01:00 Ondansetron HCl (Zofran) 4 mg PRN Q6HRS PRN IV NAUSEA/VOMITING 1ST CHOICE Last administered on 10/21/18at 06:10; Start 10/21/18 at 01:00 Active Scripts Active Zofran (Ondansetron Hcl) 4 Mg Tablet 1 Tab PO Q6HRS Metronidazole 500 Mg Tablet 500 Mg PO BID 10 Days Cipro (Ciprofloxacin Hcl) 500 Mg Tablet 1 Tab PO BID Allergies Allergies: Coded Allergies: No Known Drug Allergies (Unverified , 09/25/15) Social History: Smoke: <1 pack per day ALCOHOL: none Drugs: Marijuana ROS: 14 pt systems were reviewed and found to be within normal limits, except as documented Hematological and Lymphatic: No: Bleeding Problems, Blood Clots, Blood Transfusions, Brusing, Night Sweats, Pallor, Swollen Lymph Nodes, Other Cardiovascular: No Chest Pain, No Palpitations, No Orthopnea, No Paroxysmal Noc. Dyspnea, No Edema, No Lt Headedness, No Other Gastrointestinal: Yes Nausea, Yes Vomiting, Yes Abdominal Pain Musculoskeletal: No Gait Disturbance, No Joint Pain, No Joint Stiffness, No Joint Swelling, No Muscle Pain, No Muscular Weakness, No Pain In:, No Swelling In:, No Other VItals: Vitals: Vital Signs Date Time Temp Pulse Resp B/P (MAP) Pulse Ox O2 Delivery O2 Flow Rate FiO2 10/21/18 15:21 Room Air 10/21/18 15:00 98.1 75 18 116/87 (97) 97 98.1 Labs: Labs: Laboratory Tests Test 10/20/18 21:12 White Blood Count 23.8 x10^3/uL (4.0-11.0) Red Blood Count 5.89 x10^6/uL (4.30-5.70) Hemoglobin 17.3 g/dL (13.0-17.5) Hematocrit 50.8 % (39.0-53.0) Mean Corpuscular Volume 86 fL (79-100) Mean Corpuscular Hemoglobin 29 pg (25-35) Mean Corpuscular Hemoglobin Concent 34 g/dL (31-37) Red Cell Distribution Width 13.6 % (11.5-14.5) Platelet Count 314 x10^3/uL (140-400) Neutrophils (%) (Auto) 89 % (31-73) Lymphocytes (%) (Auto) 3 % (24-48) Monocytes (%) (Auto) 8 % (0-9) Eosinophils (%) (Auto) 0 % (0-3) Basophils (%) (Auto) 1 % (0-3) Neutrophils # (Auto) 21.1 x10^3uL (1.8-7.7) Lymphocytes # (Auto) 0.7 x10^3/uL (1.0-4.8) Monocytes # (Auto) 1.9 x10^3/uL (0.0-1.1) Eosinophils # (Auto) 0.0 x10^3/uL (0.0-0.7) Basophils # (Auto) 0.1 x10^3/uL (0.0-0.2) Segmented Neutrophils % 88 % (35-66) Lymphocytes % 5 % (24-48) Monocytes % 7 % (0-10) Platelet Estimate Adequate (ADEQUATE) Large Platelets Occ Polychromasia Slight Anisocytosis Slight Sodium Level 131 mmol/L (136-145) Potassium Level 4.0 mmol/L (3.5-5.1) Chloride Level 88 mmol/L (98-107) Carbon Dioxide Level 24 mmol/L (21-32) Anion Gap 19 (6-14) Blood Urea Nitrogen 60 mg/dL (8-26) Creatinine 2.8 mg/dL (0.7-1.3) Estimated GFR (Cockcroft-Gault) 25.1 BUN/Creatinine Ratio 21 (6-20) Glucose Level 161 mg/dL (70-99) Calcium Level 11.3 mg/dL (8.5-10.1) Total Bilirubin 1.9 mg/dL (0.2-1.0) Aspartate Amino Transf (AST/SGOT) 22 U/L (15-37) Alanine Aminotransferase (ALT/SGPT) 30 U/L (16-63) Alkaline Phosphatase 75 U/L (46-116) Total Protein 9.2 g/dL (6.4-8.2) Albumin 5.3 g/dL (3.4-5.0) Albumin/Globulin Ratio 1.4 (1.0-1.7) Lipase 69 U/L (73-393) Imaging: Imaging: CT A/P pending PE: Physical Exam Physical Exam Constitutional: Well developed, well nourished, MILD acute distress, non-toxic appearance. HENT: Normocephalic, atraumatic, bilateral external ears normal, oropharynx moist, no oral exudates, nose normal. Eyes: PERRLA, EOMI, conjunctiva normal, no discharge. Neck: Normal range of motion, no tenderness, supple, no stridor. Cardiovascular:Heart rate regular rhythm, no murmur Lungs & Thorax: Bilateral breath sounds clear to auscultation Abdomen: Abd soft, epigastric ttp, non distended, no rebound, no guarding Skin: Warm, dry, no erythema, no rash. Back: No tenderness, no CVA tenderness. Extremities: No tenderness, no cyanosis, no clubbing, ROM intact, no edema. Neurologic: Alert and oriented X 3, normal motor function, normal sensory function, no focal deficits noted. Psychologic: Affect normal, judgement normal, mood normal. A/P: A/P: A) 1) N/V 2) Abd pain 3) PMH cyclical vomiting with expected leukocytosis 4) Elevated bilirubin P 1) Await CT 2) Continue IV hydration and meds DEVIN MARTINS MD October 21, 2018 15:40
--- NOTE | 2018-10-21 21:29 | RAD ---
CT study of the abdomen and pelvis without contrast Clinical indications: Abdominal pain. TECHNIQUE: Noncontrast helical CT scanning of the abdomen and pelvis was performed. Without contrast, the sensitivity to detect organ pathology and GI tract pathology is decreased. PQRS compliance Statement One or more of the following individualized dose reduction techniques were utilized for this study: 1. Automated exposure control 2. Adjustment of the mA and/or kV according to patient size 3. Use of iterative reconstruction technique COMPARISON: June 24, 2018. FINDINGS: The liver and spleen are homogeneous in appearance on this noncontrast day. There is focal enlargement of the posterior body of the pancreas. The gallbladder is surgically absent. No extra hepatic biliary ductal dilatation is seen. No adrenal mass is evident. Tiny punctate nonobstructing stone of the upper pole of the left kidney is again evident. No hydronephrosis or hydroureter or ureteral stone is evident. Urinary bladder wall is smooth. No focal aneurysmal dilatation of the abdominal aorta is seen. No enlarged abdominal or pelvic lymphadenopathy is evident. Sigmoid diverticulosis is seen without diverticulitis. The appendix is normal. The terminal ileum is unremarkable. No obstructive bowel pattern is evident. No free intraperitoneal air or free fluid or edema is seen. No lung base consolidation is evident. No lytic process. IMPRESSION: No acute abnormality of the abdomen or pelvis. Nonobstructing stone of the left kidney. Sigmoid diverticulosis without diverticulitis. There is focal enlargement of the posterior body of the pancreas. No peripancreatic inflammatory change or free fluid or pseudocyst is seen. Recommend outpatient abdomen MRI study with and without gadolinium for further evaluation to exclude a pancreatic mass. Electronically signed by: Usman Rangel MD (10/21/2018 9:26 PM) [facility]
[2018-10-21 23:52] LABS: BILIRUBIN,URINE NEGATIVE (NEG); CLARITY,URINE CLEAR; COLOR,URINE YELLOW; NITRITE,URINE NEGATIVE (NEG); PROTEIN,URINE 30 mg/dL (NEG-TRACE)
[2018-10-21 23:58] LABS: BACTERIA,URINE 0 /HPF (0-FEW); HYALINE CASTS, URINE FEW /HPF; SQUAMOUS EPITHELIAL CELL,UR OCC /LPF; WBC,URINE OCC /HPF (0-4)
[2018-10-22 00:07] LABS: BARBITURATES NEG (NEG); BENZODIAZEPINES NEG (NEG); CANNABINOIDS POS (NEG); COCAINE NEG (NEG); METHADONE NEG (NEG); OPIATES NEG (NEG); PHENCYCLIDINE NEG (NEG)
[2018-10-22 00:08] LABS: AMPHETAMINE/METHAMPHETAMINE NEG (NEG)
[2018-10-22] MEDS: fentaNYL PF VIAL 100 MCG/2 ML VIAL IV PRN ×7 (01:50→21:18)
[2018-10-22 02:59] VITALS: BP 130/85
[2018-10-22 04:43] LABS: BASO % 0 % (0-3); EOS % 0 % (0-3); HEMATOCRIT 42.4 % (39.0-53.0); HEMOGLOBIN 14.2 g/dL (13.0-17.5); LYMPH % 28 % (24-48); MEAN CORPUSCULAR HEMOGLOBIN 30 pg (25-35); MEAN CORPUSCULAR HGB CONC 34 g/dL (31-37); MEAN CORPUSCULAR VOLUME 89 fL (79-100); MONO % 14 % (0-9); NEUT # 4.1 x10^3uL (1.8-7.7); NEUT % 58 % (31-73); PLATELET COUNT 226 x10^3/uL (140-400); RED BLOOD COUNT 4.79 x10^6/uL (4.30-5.70); WHITE BLOOD COUNT 7.1 x10^3/uL (4.0-11.0)
[2018-10-22 05:13] LABS: ALBUMIN 3.6 g/dL (3.4-5.0); ALBUMIN/GLOBULIN RATIO 1.3 (1.0-1.7); CALCIUM 8.2 mg/dL (8.5-10.1); CREATININE 1.1 mg/dL (0.7-1.3); GFR 73.8; TOTAL BILIRUBIN 1.5 mg/dL (0.2-1.0); TOTAL PROTEIN 6.4 g/dL (6.4-8.2)
[2018-10-22] MEDS: ONDANSETRON PF 4 MG/2 ML VIAL. IV PRN ×3 (05:46→21:17)
[2018-10-22 07:00] VITALS: BP 123/80
[2018-10-22] MEDS ORDERED: PROCHLORPERAZINE 5 MG TABLET. PO PRN (08:30)
[2018-10-22] MEDS: PANTOPRAZOLE IV PUSH 40 MG VIAL. IVP SCH (08:49)
[2018-10-22 11:00] VITALS: BP 130/74
--- NOTE | 2018-10-22 11:01 | PDOC ---
Subjective: Subjective: T bili 1.5 CT with MPRESSION: No acute abnormality of the abdomen or pelvis. Nonobstructing stone of the left kidney. Sigmoid diverticulosis without diverticulitis. There is focal enlargement of the posterior body of the pancreas. No peripancreatic inflammatory change or free fluid or pseudocyst is seen. Recommend outpatient abdomen MRI study with and without gadolinium for further evaluation to exclude a pancreatic mass. Objective: Vital Signs: Vital Signs Date Time Temp Pulse Resp B/P (MAP) Pulse Ox O2 Delivery O2 Flow Rate FiO2 10/22/18 09:20 Room Air 10/22/18 07:00 98.5 66 18 123/80 (94) 99 98.5 Labs: Laboratory Tests Test 10/21/18 21:58 10/22/18 04:05 Urine Collection Type Unknown Urine Color Yellow Urine Clarity Clear Urine pH 6.0 Urine Specific [place] >=1.030 Urine Protein 30 mg/dL (NEG-TRACE) Urine Glucose (UA) Negative mg/dL (NEG) Urine Ketones (Stick) 40 mg/dL (NEG) Urine Blood Moderate (NEG) Urine Nitrite Negative (NEG) Urine Bilirubin Negative (NEG) Urine Urobilinogen Dipstick 1.0 mg/dL (0.2 mg/dL) Urine Leukocyte Esterase Negative (NEG) Urine RBC 6-10 /HPF (0-2) Urine WBC Occ /HPF (0-4) Urine Squamous Epithelial Cells Occ /LPF Urine Bacteria 0 /HPF (0-FEW) Urine Hyaline Casts Few /HPF Urine Mucus Mod /LPF Urine Opiates Screen Neg (NEG) Urine Methadone Screen Neg (NEG) Urine Barbiturates Neg (NEG) Urine Phencyclidine Screen Neg (NEG) Urine Amphetamine/Methamphetamine Neg (NEG) Urine Benzodiazepines Screen Neg (NEG) Urine Cocaine Screen Neg (NEG) Urine Cannabinoids Screen Pos (NEG) Urine Ethyl Alcohol Neg (NEG) White Blood Count 7.1 x10^3/uL (4.0-11.0) Red Blood Count 4.79 x10^6/uL (4.30-5.70) Hemoglobin 14.2 g/dL (13.0-17.5) Hematocrit 42.4 % (39.0-53.0) Mean Corpuscular Volume 89 fL (79-100) Mean Corpuscular Hemoglobin 30 pg (25-35) Mean Corpuscular Hemoglobin Concent 34 g/dL (31-37) Red Cell Distribution Width 13.0 % (11.5-14.5) Platelet Count 226 x10^3/uL (140-400) Neutrophils (%) (Auto) 58 % (31-73) Lymphocytes (%) (Auto) 28 % (24-48) Monocytes (%) (Auto) 14 % (0-9) Eosinophils (%) (Auto) 0 % (0-3) Basophils (%) (Auto) 0 % (0-3) Neutrophils # (Auto) 4.1 x10^3uL (1.8-7.7) Lymphocytes # (Auto) 2.0 x10^3/uL (1.0-4.8) Monocytes # (Auto) 1.0 x10^3/uL (0.0-1.1) Eosinophils # (Auto) 0.0 x10^3/uL (0.0-0.7) Basophils # (Auto) 0.0 x10^3/uL (0.0-0.2) Sodium Level 136 mmol/L (136-145) Potassium Level 4.0 mmol/L (3.5-5.1) Chloride Level 98 mmol/L (98-107) Carbon Dioxide Level 28 mmol/L (21-32) Anion Gap 10 (6-14) Blood Urea Nitrogen 28 mg/dL (8-26) Creatinine 1.1 mg/dL (0.7-1.3) Estimated GFR (Cockcroft-Gault) 73.8 BUN/Creatinine Ratio 25 (6-20) Glucose Level 95 mg/dL (70-99) Calcium Level 8.2 mg/dL (8.5-10.1) Magnesium Level 2.7 mg/dL (1.8-2.4) Total Bilirubin 1.5 mg/dL (0.2-1.0) Aspartate Amino Transf (AST/SGOT) 15 U/L (15-37) Alanine Aminotransferase (ALT/SGPT) 23 U/L (16-63) Alkaline Phosphatase 46 U/L (46-116) Total Protein 6.4 g/dL (6.4-8.2) Albumin 3.6 g/dL (3.4-5.0) Albumin/Globulin Ratio 1.3 (1.0-1.7) Physical Exam: Physical Exam: GEN: NAD HEENT: OP clear CV: S1S2 without murmurs, rubs, or gallops RESP: CTAB without wheezing, rhonchi, or crackles ABD: NABS, SNT/ND EXT: No edema NEURO: AAO x 3 Assessment & Plan: Assessment : A/P: A/P: A) 1) N/V 2) Abd pain 3) PMH cyclical vomiting with expected leukocytosis 4) Elevated bilirubin down to 1.5 5) ? Panc mass on Ct Plan: P 1) Order MRCP 2) Continue IV hydration and meds DEVIN MARTINS MD October 22, 2018 11:01
--- NOTE | 2018-10-22 11:33 | PDOC ---
SUBJECTIVE ROS Follow-up for AK I Patient doing better OBJECTIVE Vital Signs Vital Signs Date Time Temp Pulse Resp B/P (MAP) Pulse Ox O2 Delivery O2 Flow Rate FiO2 10/22/18 11:00 98.4 64 18 130/74 (92) 99 98.4 10/22/18 09:20 Room Air I & 0 Intake and Output 10/22/18 07:00 Intake Total 240 ml Output Total 25 ml Balance 215 ml Intake Oral 240 ml Output Urine Total 25 ml # Voids 1 PHYSICAL EXAM Physical Exam General Appearance: Awake: Alert Oriented x 3 Neck: No JVD or JVP Chest: CTA Reymundo Heart: S1 S2 Abdomen - Soft NTND Extremities - No Edema DIAGNOSIS/ASSESSMENT Assessment & Plan Acute kidney injury: Suspect due to dehydration from nausea vomiting. Responded well to IV fluids I'll sign off was called with questions concerns COMMENT/RELEVANT DATA Meds Current Medications Medications (Trade) Dose Ordered Sig/Lauren Start Time Stop Time Status Last Admin Dose Admin Acetaminophen (Tylenol) 650 mg PRN Q6HRS PRN 10/21/18 01:00 10/21/18 00:59 650 MG Diphenhydramine HCl (Benadryl) 25 mg 1X ONCE 10/20/18 22:00 10/20/18 22:01 DC 10/20/18 21:55 25 MG Enoxaparin Sodium (Lovenox 30mg Syringe) 30 mg Q24H 10/21/18 12:00 10/21/18 11:33 30 MG Fentanyl Citrate (Fentanyl 2ml Vial) 75 mcg PRN Q3HRS PRN 10/22/18 08:30 10/22/18 08:49 75 MCG Haloperidol Lactate (Haldol Inj) 5 mg 1X ONCE 10/20/18 22:00 10/20/18 22:01 DC 10/20/18 21:55 5 MG Magnesium Sulfate 50 ml @ 25 mls/hr PRN DAILY PRN 10/21/18 14:00 Ondansetron HCl (Zofran) 4 mg PRN Q6HRS PRN 10/21/18 01:00 10/22/18 05:46 4 MG Pantoprazole Sodium (PROTONIX VIAL for IV PUSH) 40 mg DAILYAC 10/21/18 12:00 10/22/18 08:49 40 MG Prochlorperazine Maleate (Compazine) 5 mg PRN Q6HRS PRN 10/22/18 08:30 10/22/18 09:11 5 MG Sodium Chloride 1,000 ml @ 2,000 mls/hr Q30M 10/21/18 11:30 10/21/18 12:23 DC Lab Laboratory Tests Test 10/21/18 21:58 10/22/18 04:05 Urine Collection Type Unknown Urine Color Yellow Urine Clarity Clear Urine pH 6.0 Urine Specific [place] >=1.030 Urine Protein 30 mg/dL (NEG-TRACE) Urine Glucose (UA) Negative mg/dL (NEG) Urine Ketones (Stick) 40 mg/dL (NEG) Urine Blood Moderate (NEG) Urine Nitrite Negative (NEG) Urine Bilirubin Negative (NEG) Urine Urobilinogen Dipstick 1.0 mg/dL (0.2 mg/dL) Urine Leukocyte Esterase Negative (NEG) Urine RBC 6-10 /HPF (0-2) Urine WBC Occ /HPF (0-4) Urine Squamous Epithelial Cells Occ /LPF Urine Bacteria 0 /HPF (0-FEW) Urine Hyaline Casts Few /HPF Urine Mucus Mod /LPF Urine Opiates Screen Neg (NEG) Urine Methadone Screen Neg (NEG) Urine Barbiturates Neg (NEG) Urine Phencyclidine Screen Neg (NEG) Urine Amphetamine/Methamphetamine Neg (NEG) Urine Benzodiazepines Screen Neg (NEG) Urine Cocaine Screen Neg (NEG) Urine Cannabinoids Screen Pos (NEG) Urine Ethyl Alcohol Neg (NEG) White Blood Count 7.1 x10^3/uL (4.0-11.0) Red Blood Count 4.79 x10^6/uL (4.30-5.70) Hemoglobin 14.2 g/dL (13.0-17.5) Hematocrit 42.4 % (39.0-53.0) Mean Corpuscular Volume 89 fL (79-100) Mean Corpuscular Hemoglobin 30 pg (25-35) Mean Corpuscular Hemoglobin Concent 34 g/dL (31-37) Red Cell Distribution Width 13.0 % (11.5-14.5) Platelet Count 226 x10^3/uL (140-400) Neutrophils (%) (Auto) 58 % (31-73) Lymphocytes (%) (Auto) 28 % (24-48) Monocytes (%) (Auto) 14 % (0-9) Eosinophils (%) (Auto) 0 % (0-3) Basophils (%) (Auto) 0 % (0-3) Neutrophils # (Auto) 4.1 x10^3uL (1.8-7.7) Lymphocytes # (Auto) 2.0 x10^3/uL (1.0-4.8) Monocytes # (Auto) 1.0 x10^3/uL (0.0-1.1) Eosinophils # (Auto) 0.0 x10^3/uL (0.0-0.7) Basophils # (Auto) 0.0 x10^3/uL (0.0-0.2) Sodium Level 136 mmol/L (136-145) Potassium Level 4.0 mmol/L (3.5-5.1) Chloride Level 98 mmol/L (98-107) Carbon Dioxide Level 28 mmol/L (21-32) Anion Gap 10 (6-14) Blood Urea Nitrogen 28 mg/dL (8-26) Creatinine 1.1 mg/dL (0.7-1.3) Estimated GFR (Cockcroft-Gault) 73.8 BUN/Creatinine Ratio 25 (6-20) Glucose Level 95 mg/dL (70-99) Calcium Level 8.2 mg/dL (8.5-10.1) Magnesium Level 2.7 mg/dL (1.8-2.4) Total Bilirubin 1.5 mg/dL (0.2-1.0) Aspartate Amino Transf (AST/SGOT) 15 U/L (15-37) Alanine Aminotransferase (ALT/SGPT) 23 U/L (16-63) Alkaline Phosphatase 46 U/L (46-116) Total Protein 6.4 g/dL (6.4-8.2) Albumin 3.6 g/dL (3.4-5.0) Albumin/Globulin Ratio 1.3 (1.0-1.7) Results All relevant outside records, renal labs, imaging studies, telemetry/EKG's were reviewed. RUI CHOW MD October 22, 2018 11:33
--- NOTE | 2018-10-22 11:55 | PDOC ---
PROGRESS NOTES History of Present Illness History of Present Illness VTE Prophylaxis Ordered VTE Prophylaxis Devices: Yes VTE Pharmacological Prophylaxi: Yes Assessment/Plan Assessment/Plan Impression: Nausea & vomiting INTRACTABLE, persists today Acute on chronic renal failure THC ABUSE HX Colitis , nonspecific ABD PAIN, CONCERN FOR PUD LEUKOCYTOSIS There is focal enlargement of the posterior body of the pancreas. No peripancreatic inflammatory change or free fluid or pseudocyst is seen. suggest outpatient abdomen MRI study with and without gadolinium to exclude a pancreatic mass. worsening pain, epigastrum elevated mg ADMITTED iv fluid support iv zofran q 4 hrs prn GI CONSULT IV PROTONIX AVOID THC AM LABS CT ABD/PELVIS, reviewed NO NSAIDS DVT PROPHYLAXIS Nephrology consult [facility]CP inc fentanyl tp 75 mcg iv q 3 hrs 43 MIN PT EXAM, CHART REVIEW, > 50% OF TIME SPENT WITH EXAM, CHART REVIEW, PT CARE COORDINATION Vitals Vitals Vital Signs Date Time Temp Pulse Resp B/P (MAP) Pulse Ox O2 Delivery O2 Flow Rate FiO2 10/22/18 11:00 98.4 64 18 130/74 (92) 99 98.4 10/22/18 09:20 Room Air Physical Exam General: Alert, Oriented X3, Cooperative, mild distress, moderate distress Heart: Regular rate, Normal S1, Normal S2 Lungs: Clear Abdomen: Normal bowel sounds Extremities: No clubbing, No cyanosis, No edema Labs LABS CT study of the abdomen and pelvis without contrast Clinical indications: Abdominal pain. TECHNIQUE: Noncontrast helical CT scanning of the abdomen and pelvis was performed. Without contrast, the sensitivity to detect organ pathology and GI tract pathology is decreased. PQRS compliance Statement One or more of the following individualized dose reduction techniques were utilized for this study: 1. Automated exposure control 2. Adjustment of the mA and/or kV according to patient size 3. Use of iterative reconstruction technique COMPARISON: June 24, 2018. FINDINGS: The liver and spleen are homogeneous in appearance on this noncontrast day. There is focal enlargement of the posterior body of the pancreas. The gallbladder is surgically absent. No extra hepatic biliary ductal dilatation is seen. No adrenal mass is evident. Tiny punctate nonobstructing stone of the upper pole of the left kidney is again evident. No hydronephrosis or hydroureter or ureteral stone is evident. Urinary bladder wall is smooth. No focal aneurysmal dilatation of the abdominal aorta is seen. No enlarged abdominal or pelvic lymphadenopathy is evident. Sigmoid diverticulosis is seen without diverticulitis. The appendix is normal. The terminal ileum is unremarkable. No obstructive bowel pattern is evident. No free intraperitoneal air or free fluid or edema is seen. No lung base consolidation is evident. No lytic process. IMPRESSION: No acute abnormality of the abdomen or pelvis. Nonobstructing stone of the left kidney. Sigmoid diverticulosis without diverticulitis. There is focal enlargement of the posterior body of the pancreas. No peripancreatic inflammatory change or free fluid or pseudocyst is seen. Recommend outpatient abdomen MRI study with and without gadolinium for further evaluation to exclude a pancreatic mass. Electronically signed by: Usman Rangel MD (10/21/2018 9:26 PM) [facility] Laboratory Tests Test 10/21/18 21:58 10/22/18 04:05 Urine Collection Type Unknown Urine Color Yellow Urine Clarity Clear Urine pH 6.0 Urine Specific [place] >=1.030 Urine Protein 30 mg/dL (NEG-TRACE) Urine Glucose (UA) Negative mg/dL (NEG) Urine Ketones (Stick) 40 mg/dL (NEG) Urine Blood Moderate (NEG) Urine Nitrite Negative (NEG) Urine Bilirubin Negative (NEG) Urine Urobilinogen Dipstick 1.0 mg/dL (0.2 mg/dL) Urine Leukocyte Esterase Negative (NEG) Urine RBC 6-10 /HPF (0-2) Urine WBC Occ /HPF (0-4) Urine Squamous Epithelial Cells Occ /LPF Urine Bacteria 0 /HPF (0-FEW) Urine Hyaline Casts Few /HPF Urine Mucus Mod /LPF Urine Opiates Screen Neg (NEG) Urine Methadone Screen Neg (NEG) Urine Barbiturates Neg (NEG) Urine Phencyclidine Screen Neg (NEG) Urine Amphetamine/Methamphetamine Neg (NEG) Urine Benzodiazepines Screen Neg (NEG) Urine Cocaine Screen Neg (NEG) Urine Cannabinoids Screen Pos (NEG) Urine Ethyl Alcohol Neg (NEG) White Blood Count 7.1 x10^3/uL (4.0-11.0) Red Blood Count 4.79 x10^6/uL (4.30-5.70) Hemoglobin 14.2 g/dL (13.0-17.5) Hematocrit 42.4 % (39.0-53.0) Mean Corpuscular Volume 89 fL (79-100) Mean Corpuscular Hemoglobin 30 pg (25-35) Mean Corpuscular Hemoglobin Concent 34 g/dL (31-37) Red Cell Distribution Width 13.0 % (11.5-14.5) Platelet Count 226 x10^3/uL (140-400) Neutrophils (%) (Auto) 58 % (31-73) Lymphocytes (%) (Auto) 28 % (24-48) Monocytes (%) (Auto) 14 % (0-9) Eosinophils (%) (Auto) 0 % (0-3) Basophils (%) (Auto) 0 % (0-3) Neutrophils # (Auto) 4.1 x10^3uL (1.8-7.7) Lymphocytes # (Auto) 2.0 x10^3/uL (1.0-4.8) Monocytes # (Auto) 1.0 x10^3/uL (0.0-1.1) Eosinophils # (Auto) 0.0 x10^3/uL (0.0-0.7) Basophils # (Auto) 0.0 x10^3/uL (0.0-0.2) Sodium Level 136 mmol/L (136-145) Potassium Level 4.0 mmol/L (3.5-5.1) Chloride Level 98 mmol/L (98-107) Carbon Dioxide Level 28 mmol/L (21-32) Anion Gap 10 (6-14) Blood Urea Nitrogen 28 mg/dL (8-26) Creatinine 1.1 mg/dL (0.7-1.3) Estimated GFR (Cockcroft-Gault) 73.8 BUN/Creatinine Ratio 25 (6-20) Glucose Level 95 mg/dL (70-99) Calcium Level 8.2 mg/dL (8.5-10.1) Magnesium Level 2.7 mg/dL (1.8-2.4) Total Bilirubin 1.5 mg/dL (0.2-1.0) Aspartate Amino Transf (AST/SGOT) 15 U/L (15-37) Alanine Aminotransferase (ALT/SGPT) 23 U/L (16-63) Alkaline Phosphatase 46 U/L (46-116) Total Protein 6.4 g/dL (6.4-8.2) Albumin 3.6 g/dL (3.4-5.0) Albumin/Globulin Ratio 1.3 (1.0-1.7) Assessment and Plan Assessmemt and Plan Problems Medical Problems: (1) Acute on chronic renal failure Status: Acute Comment Review of Relevant I have reviewed the following items ester (where applicable) has been applied. Labs Laboratory Tests Test 10/20/18 21:12 10/21/18 21:58 10/22/18 04:05 White Blood Count 23.8 x10^3/uL (4.0-11.0) 7.1 x10^3/uL (4.0-11.0) Red Blood Count 5.89 x10^6/uL (4.30-5.70) 4.79 x10^6/uL (4.30-5.70) Hemoglobin 17.3 g/dL (13.0-17.5) 14.2 g/dL (13.0-17.5) Hematocrit 50.8 % (39.0-53.0) 42.4 % (39.0-53.0) Mean Corpuscular Volume 86 fL (79-100) 89 fL (79-100) Mean Corpuscular Hemoglobin 29 pg (25-35) 30 pg (25-35) Mean Corpuscular Hemoglobin Concent 34 g/dL (31-37) 34 g/dL (31-37) Red Cell Distribution Width 13.6 % (11.5-14.5) 13.0 % (11.5-14.5) Platelet Count 314 x10^3/uL (140-400) 226 x10^3/uL (140-400) Neutrophils (%) (Auto) 89 % (31-73) 58 % (31-73) Lymphocytes (%) (Auto) 3 % (24-48) 28 % (24-48) Monocytes (%) (Auto) 8 % (0-9) 14 % (0-9) Eosinophils (%) (Auto) 0 % (0-3) 0 % (0-3) Basophils (%) (Auto) 1 % (0-3) 0 % (0-3) Neutrophils # (Auto) 21.1 x10^3uL (1.8-7.7) 4.1 x10^3uL (1.8-7.7) Lymphocytes # (Auto) 0.7 x10^3/uL (1.0-4.8) 2.0 x10^3/uL (1.0-4.8) Monocytes # (Auto) 1.9 x10^3/uL (0.0-1.1) 1.0 x10^3/uL (0.0-1.1) Eosinophils # (Auto) 0.0 x10^3/uL (0.0-0.7) 0.0 x10^3/uL (0.0-0.7) Basophils # (Auto) 0.1 x10^3/uL (0.0-0.2) 0.0 x10^3/uL (0.0-0.2) Segmented Neutrophils % 88 % (35-66) Lymphocytes % 5 % (24-48) Monocytes % 7 % (0-10) Platelet Estimate Adequate (ADEQUATE) Large Platelets Occ Polychromasia Slight Anisocytosis Slight Sodium Level 131 mmol/L (136-145) 136 mmol/L (136-145) Potassium Level 4.0 mmol/L (3.5-5.1) 4.0 mmol/L (3.5-5.1) Chloride Level 88 mmol/L (98-107) 98 mmol/L (98-107) Carbon Dioxide Level 24 mmol/L (21-32) 28 mmol/L (21-32) Anion Gap 19 (6-14) 10 (6-14) Blood Urea Nitrogen 60 mg/dL (8-26) 28 mg/dL (8-26) Creatinine 2.8 mg/dL (0.7-1.3) 1.1 mg/dL (0.7-1.3) Estimated GFR (Cockcroft-Gault) 25.1 73.8 BUN/Creatinine Ratio 21 (6-20) 25 (6-20) Glucose Level 161 mg/dL (70-99) 95 mg/dL (70-99) Calcium Level 11.3 mg/dL (8.5-10.1) 8.2 mg/dL (8.5-10.1) Total Bilirubin 1.9 mg/dL (0.2-1.0) 1.5 mg/dL (0.2-1.0) Aspartate Amino Transf (AST/SGOT) 22 U/L (15-37) 15 U/L (15-37) Alanine Aminotransferase (ALT/SGPT) 30 U/L (16-63) 23 U/L (16-63) Alkaline Phosphatase 75 U/L (46-116) 46 U/L (46-116) Total Protein 9.2 g/dL (6.4-8.2) 6.4 g/dL (6.4-8.2) Albumin 5.3 g/dL (3.4-5.0) 3.6 g/dL (3.4-5.0) Albumin/Globulin Ratio 1.4 (1.0-1.7) 1.3 (1.0-1.7) Lipase 69 U/L (73-393) Urine Collection Type Unknown Urine Color Yellow Urine Clarity Clear Urine pH 6.0 Urine Specific [place] >=1.030 Urine Protein 30 mg/dL (NEG-TRACE) Urine Glucose (UA) Negative mg/dL (NEG) Urine Ketones (Stick) 40 mg/dL (NEG) Urine Blood Moderate (NEG) Urine Nitrite Negative (NEG) Urine Bilirubin Negative (NEG) Urine Urobilinogen Dipstick 1.0 mg/dL (0.2 mg/dL) Urine Leukocyte Esterase Negative (NEG) Urine RBC 6-10 /HPF (0-2) Urine WBC Occ /HPF (0-4) Urine Squamous Epithelial Cells Occ /LPF Urine Bacteria 0 /HPF (0-FEW) Urine Hyaline Casts Few /HPF Urine Mucus Mod /LPF Urine Opiates Screen Neg (NEG) Urine Methadone Screen Neg (NEG) Urine Barbiturates Neg (NEG) Urine Phencyclidine Screen Neg (NEG) Urine Amphetamine/Methamphetamine Neg (NEG) Urine Benzodiazepines Screen Neg (NEG) Urine Cocaine Screen Neg (NEG) Urine Cannabinoids Screen Pos (NEG) Urine Ethyl Alcohol Neg (NEG) Magnesium Level 2.7 mg/dL (1.8-2.4) Laboratory Tests Test 10/21/18 21:58 10/22/18 04:05 Urine Collection Type Unknown Urine Color Yellow Urine Clarity Clear Urine pH 6.0 Urine Specific [place] >=1.030 Urine Protein 30 mg/dL (NEG-TRACE) Urine Glucose (UA) Negative mg/dL (NEG) Urine Ketones (Stick) 40 mg/dL (NEG) Urine Blood Moderate (NEG) Urine Nitrite Negative (NEG) Urine Bilirubin Negative (NEG) Urine Urobilinogen Dipstick 1.0 mg/dL (0.2 mg/dL) Urine Leukocyte Esterase Negative (NEG) Urine RBC 6-10 /HPF (0-2) Urine WBC Occ /HPF (0-4) Urine Squamous Epithelial Cells Occ /LPF Urine Bacteria 0 /HPF (0-FEW) Urine Hyaline Casts Few /HPF Urine Mucus Mod /LPF Urine Opiates Screen Neg (NEG) Urine Methadone Screen Neg (NEG) Urine Barbiturates Neg (NEG) Urine Phencyclidine Screen Neg (NEG) Urine Amphetamine/Methamphetamine Neg (NEG) Urine Benzodiazepines Screen Neg (NEG) Urine Cocaine Screen Neg (NEG) Urine Cannabinoids Screen Pos (NEG) Urine Ethyl Alcohol Neg (NEG) White Blood Count 7.1 x10^3/uL (4.0-11.0) Red Blood Count 4.79 x10^6/uL (4.30-5.70) Hemoglobin 14.2 g/dL (13.0-17.5) Hematocrit 42.4 % (39.0-53.0) Mean Corpuscular Volume 89 fL (79-100) Mean Corpuscular Hemoglobin 30 pg (25-35) Mean Corpuscular Hemoglobin Concent 34 g/dL (31-37) Red Cell Distribution Width 13.0 % (11.5-14.5) Platelet Count 226 x10^3/uL (140-400) Neutrophils (%) (Auto) 58 % (31-73) Lymphocytes (%) (Auto) 28 % (24-48) Monocytes (%) (Auto) 14 % (0-9) Eosinophils (%) (Auto) 0 % (0-3) Basophils (%) (Auto) 0 % (0-3) Neutrophils # (Auto) 4.1 x10^3uL (1.8-7.7) Lymphocytes # (Auto) 2.0 x10^3/uL (1.0-4.8) Monocytes # (Auto) 1.0 x10^3/uL (0.0-1.1) Eosinophils # (Auto) 0.0 x10^3/uL (0.0-0.7) Basophils # (Auto) 0.0 x10^3/uL (0.0-0.2) Sodium Level 136 mmol/L (136-145) Potassium Level 4.0 mmol/L (3.5-5.1) Chloride Level 98 mmol/L (98-107) Carbon Dioxide Level 28 mmol/L (21-32) Anion Gap 10 (6-14) Blood Urea Nitrogen 28 mg/dL (8-26) Creatinine 1.1 mg/dL (0.7-1.3) Estimated GFR (Cockcroft-Gault) 73.8 BUN/Creatinine Ratio 25 (6-20) Glucose Level 95 mg/dL (70-99) Calcium Level 8.2 mg/dL (8.5-10.1) Magnesium Level 2.7 mg/dL (1.8-2.4) Total Bilirubin 1.5 mg/dL (0.2-1.0) Aspartate Amino Transf (AST/SGOT) 15 U/L (15-37) Alanine Aminotransferase (ALT/SGPT) 23 U/L (16-63) Alkaline Phosphatase 46 U/L (46-116) Total Protein 6.4 g/dL (6.4-8.2) Albumin 3.6 g/dL (3.4-5.0) Albumin/Globulin Ratio 1.3 (1.0-1.7) Microbiology 10/21/18 Blood Culture - Preliminary, Resulted NO GROWTH AFTER 1 DAY Medications Current Medications Ondansetron HCl (Zofran) 4 mg 1X ONCE IV Last administered on 10/20/18 21:55; Start 10/20/18 at 22:00; Stop 10/20/18 at 22:01; Status DC Haloperidol Lactate (Haldol Inj) 5 mg 1X ONCE IVP Last administered on 10/20/18at 21:55; Start 10/20/18 at 22:00; Stop 10/20/18 at 22:01; Status DC Diphenhydramine HCl (Benadryl) 25 mg 1X ONCE IVP Last administered on 10/20/18 21:55; Start 10/20/18 at 22:00; Stop 10/20/18 at 22:01; Status DC Sodium Chloride 1,000 ml @ 1,000 mls/hr 1X ONCE IV Last administered on 10/20/18at 21:55; Start 10/20/18 at 22:00; Stop 10/20/18 at 22:59; Status DC Acetaminophen (Tylenol) 650 mg PRN Q6HRS PRN PO fever Last administered on 10/21/18at 00:59; Start 10/21/18 at 01:00 Ondansetron HCl (Zofran) 4 mg PRN Q6HRS PRN IV NAUSEA/VOMITING 1ST CHOICE Last administered on 10/22/18 05:46; Start 10/21/18 at 01:00 Sodium Chloride 1,000 ml @ 125 mls/hr 1X ONCE IV Last administered on 10/21/18at 11:34; Start 10/21/18 at 11:15; Stop 10/21/18 at 19:14; Status DC Fentanyl Citrate (Fentanyl 2ml Vial) 50 mcg PRN Q3HRS PRN IV PAIN Last administered on 10/22/18 05:43; Start 10/21/18 at 11:15; Stop 10/22/18 at 08:26; Status DC Enoxaparin Sodium (Lovenox 30mg Syringe) 30 mg Q24H SQ Last administered on 10/21/18 11:33; Start 10/21/18 at 12:00 Pantoprazole Sodium (PROTONIX VIAL for IV PUSH) 40 mg DAILYAC IVP Last administered on 10/22/18 08:49; Start 10/21/18 at 12:00 Sodium Chloride 1,000 ml @ 2,000 mls/hr Q30M IV ; Start 10/21/18 at 11:30; Stop 10/21/18 at 12:23; Status DC Magnesium Sulfate 50 ml @ 25 mls/hr PRN DAILY PRN IV for Mag < 1.7 on am labs; Start 10/21/18 at 14:00 Fentanyl Citrate (Fentanyl 2ml Vial) 75 mcg PRN Q3HRS PRN IV PAIN Last administered on 10/22/18 08:49; Start 10/22/18 at 08:30 Prochlorperazine Maleate (Compazine) 5 mg PRN Q6HRS PRN PO NAUSEA/VOMITING Last administered on 10/22/18 09:11; Start 10/22/18 at 08:30 Active Scripts Active Zofran (Ondansetron Hcl) 4 Mg Tablet 1 Tab PO Q6HRS Metronidazole 500 Mg Tablet 500 Mg PO BID 10 Days Cipro (Ciprofloxacin Hcl) 500 Mg Tablet 1 Tab PO BID Vitals/I & O Vital Sign - Last 24 Hours 10/21/18 10/21/18 10/21/18 10/21/18 15:00 15:21 18:53 19:00 Temp 98.1 99.9 98.1 99.9 Pulse 75 66 Resp 18 18 B/P (MAP) 116/87 (97) 135/82 (99) Pulse Ox 97 99 O2 Delivery Room Air Room Air Room Air Room Air 10/21/18 10/21/18 10/21/18 10/22/18 20:04 22:22 23:00 01:50 Temp 99.7 99.7 Pulse 63 Resp 18 18 18 B/P (MAP) 126/67 (86) Pulse Ox 97 99 99 O2 Delivery Room Air Room Air Room Air Room Air 10/22/18 10/22/18 10/22/18 10/22/18 02:59 05:43 06:38 07:00 Temp 98.6 98.5 98.6 98.5 Pulse 63 66 Resp 18 18 18 18 B/P (MAP) 130/85 (100) 123/80 (94) Pulse Ox 100 100 100 99 O2 Delivery Room Air Room Air Room Air 10/22/18 10/22/18 10/22/18 10/22/18 07:45 08:49 09:20 11:00 Temp 98.4 98.4 Pulse 64 Resp 18 B/P (MAP) 130/74 (92) Pulse Ox 99 O2 Delivery Room Air Room Air Room Air Intake and Output 10/21/18 10/21/18 10/22/18 15:00 23:00 07:00 Intake Total 240 ml Output Total 25 ml Balance -25 ml 240 ml MATIAS HOLMAN MD October 22, 2018 11:55
[2018-10-22] MEDS: ENOXAPARIN 30 MG/0.3 ML SYRINGE. SQ SCH (12:05)
[2018-10-22] MEDS: IV NORMAL SALINE 1000ML BAG 1,000 ML IV SCH ×2 (14:37→22:00)
--- NOTE | 2018-10-22 14:53 | EKG ---
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
[2018-10-22 15:00] VITALS: BP 135/64
[2018-10-22 19:00] VITALS: BP_SYST 115; BP_SYST 136; BP_DIAS 71; BP_DIAS 85
[2018-10-22 23:00] VITALS: BP 119/77
[2018-10-23] MEDS: fentaNYL PF VIAL 100 MCG/2 ML VIAL IV PRN ×3 (00:19→07:49)
[2018-10-23 03:00] VITALS: BP 118/75
[2018-10-23] MEDS: IV NORMAL SALINE 1000ML BAG 1,000 ML IV SCH (06:00)
[2018-10-23 07:00] VITALS: BP 120/76
[2018-10-23 07:32] LABS: BASO % 0 % (0-3); EOS % 1 % (0-3); HEMATOCRIT 38.9 % (39.0-53.0); HEMOGLOBIN 12.8 g/dL (13.0-17.5); LYMPH # 2.3 x10^3/uL (1.0-4.8); LYMPH % 34 % (24-48); MEAN CORPUSCULAR HEMOGLOBIN 29 pg (25-35); MEAN CORPUSCULAR HGB CONC 33 g/dL (31-37); MEAN CORPUSCULAR VOLUME 88 fL (79-100); MONO # 0.8 x10^3/uL (0.0-1.1); MONO % 13 % (0-9); NEUT # 3.5 x10^3uL (1.8-7.7); NEUT % 53 % (31-73); PLATELET COUNT 214 x10^3/uL (140-400); RED BLOOD COUNT 4.44 x10^6/uL (4.30-5.70); WHITE BLOOD COUNT 6.6 x10^3/uL (4.0-11.0)
[2018-10-23] MEDS: PANTOPRAZOLE IV PUSH 40 MG VIAL. IVP SCH (07:48)
[2018-10-23] MEDS: ONDANSETRON PF 4 MG/2 ML VIAL. IV PRN (07:48)
[2018-10-23 07:51] LABS: ALBUMIN 3.2 g/dL (3.4-5.0); CALCIUM 8.1 mg/dL (8.5-10.1); CREATININE 0.9 mg/dL (0.7-1.3); MAGNESIUM 2.2 mg/dL (1.8-2.4); PHOSPHORUS 1.5 mg/dL (2.6-4.7); POTASSIUM 3.4 mmol/L (3.5-5.1)
[2018-10-23] MEDS ORDERED: HYDROcodone/APAP 7.5/325MG 1 TAB TABLET PO PRN (10:00)
[2018-10-23] MEDS ORDERED: ONDANSETRON ODT 4 MG TAB.RAPDIS. PO PRN (10:00)
[2018-10-23] MEDS ORDERED: HYDR-2765 PO (10:18)
[2018-10-23] MEDS ORDERED: ONDA4TAB7 PO (10:18)
[2018-10-23 10:40] VITALS: BP 122/84
[2018-10-23] MEDS ORDERED: POTASSIUM CHLORIDE 20 MEQ TABLET.ER. PO ONE (11:00)
--- NOTE | 2018-10-23 13:00 | NUR ---
Discharge Note: Patient was discharged home with self care. Patient stated he needed to go home because he needed to get back to work. Patients IV was discontinued without any complications by TRAIN ANNOUNCER. Patient was given discharge summary/instructions, follow-ups, prescriptions and educational material. Patient did not have any further questions or concerns. Patient ambulated to the main entrance accompanied by this RN with all his personal belongings where his father was waiting for him to take him home.
== END 2018-10-23 12:00 | disposition home or self-care (01) ==
LOC: ER 20:02 → 5 NORTH 22:50
PROVIDERS: ADMIT Family Medicine; ATTEND Family Medicine
DX: G43.A1 Cyclical vomiting, in migraine, intractable (principal); K21.9 Gastro-esophageal reflux disease without esophagitis; M19.90 Unspecified osteoarthritis, unspecified site; F17.210 Nicotine dependence, cigarettes, uncomplicated; I12.9 Hypertensive chronic kidney disease with stage 1 through stage 4 chronic kidney disease, or unspecified chronic kidney disease; N18.9 Chronic kidney disease, unspecified; N17.9 Acute kidney failure, unspecified; D72.829 Elevated white blood cell count, unspecified; K92.0 Hematemesis; R10.9 Unspecified abdominal pain; K52.9 Noninfective gastroenteritis and colitis, unspecified; F12.10 Cannabis abuse, uncomplicated; Z82.49 Family history of ischemic heart disease and other diseases of the circulatory system
CPT/HCPCS: 36415; 74176; 80053; 80069; 80307; 81001; 83690; 83735; 85007; 85025; 87040; 93005; 96361; 96372; 96374; 96375; 96376; 99284; C9113; G0378; J1200; J1630; J1650; J2405; J3010; J7030; Q0162; Q0164; G0379

== ENCOUNTER 2019-05-25 18:52 | Emergency (ER) | payer SELFPAY ==
[2018-11-16 11:00] VITALS: BP 113/84
[~2019-05-25 18:52] MED LIST changes: +HYDR-2765 PO
== END 2019-05-25 19:45 | disposition left against medical advice (07) ==
LOC: ER 18:52
DX: R11.2 Nausea with vomiting, unspecified (principal); Z53.21 Procedure and treatment not carried out due to patient leaving prior to being seen by health care provider

== ENCOUNTER 2019-05-26 04:56 | Inpatient (IN) | payer SELFPAY ==
[~2019-05-26] VITALS: Ht 167.6 cm; Wt 63.0 kg
--- NOTE | 2019-05-26 05:26 | PHYS DOC ---
Past Medical History Past Medical History: Diabetes-Type II, GI Bleed, Other Additional Past Medical Histor: PEPTIC ULCERS Past Surgical History: No Surgical History Alcohol Use: Occasionally Drug Use: Marijuana Social History Narrative: STATES HE LAST USED [place] "MAYBE 2WKS AGO" Adult General Chief Complaint Chief Complaint: NAUSEA/VOMITING/DIARRHA HPI HPI 44-year-old male presents to the emergency department with complaints of abdominal pain, nausea, vomiting. Patient has underlying history of cyclic vomiting syndrome. He states this started approximately 4 days ago.. He denies any tobacco, drug use, diarrhea. Patient was last seen here in October for similar complaints. Nothing makes his symptoms worse, nothing makes his symptoms better. Patient describes pain as cramping, diffusely tender. Review of Systems Review of Systems Constitutional: Denies fever or chills [] Eyes: Denies change in visual acuity, redness, or eye pain [] HENT: Denies nasal congestion or sore throat [] Respiratory: Denies cough or shortness of breath [] Cardiovascular: No additional information not addressed in HPI [] GI: Denies abdominal pain, nausea, vomiting, bloody stools or diarrhea [] : Denies dysuria or hematuria [] Musculoskeletal: Denies back pain or joint pain [] Integument: Denies rash or skin lesions [] Neurologic: Denies headache, focal weakness or sensory changes [] Endocrine: Denies polyuria or polydipsia [] All other systems were reviewed and found to be within normal limits, except as documented in this note. Current Medications Current Medications Current Medications Medications (Trade) Dose Ordered Sig/Lauren Start Time Stop Time Status Last Admin Dose Admin Dicyclomine HCl (Bentyl) 10 mg 1X ONCE 05/26/19 05:30 05/26/19 05:31 DC 05/26/19 05:42 10 MG Morphine Sulfate (Morphine Sulfate) 4 mg 1X ONCE 05/26/19 05:30 05/26/19 05:31 DC 05/26/19 05:34 4 MG Ondansetron HCl (Zofran) 4 mg 1X ONCE 05/26/19 05:30 05/26/19 05:31 DC 05/26/19 05:34 4 MG Sodium Chloride 1,000 ml @ 1,000 mls/hr Q1H 05/26/19 05:30 05/26/19 06:29 05/26/19 05:42 1,000 MLS/HR Allergies Allergies Allergies Coded Allergies Type Severity Reaction Last Updated Verified No Known Drug Allergies 09/25/15 No Physical Exam Physical Exam Constitutional: Well developed, well nourished, distress 2/2 pain, non-toxic appearance. [] HENT: Normocephalic, atraumatic, bilateral external ears normal, oropharynx moist, no oral exudates, nose normal. [] Eyes: PERRLA, EOMI, conjunctiva normal, no discharge. [] Cardiovascular: Tachycardia Lungs & Thorax: Bilateral breath sounds clear to auscultation [] Abdomen: Bowel sounds normal, soft, no tenderness, no masses, no pulsatile masses. [] Skin: Warm, dry, no erythema, no rash. [] Back: No tenderness, no CVA tenderness. [] Extremities: No tenderness, no edema. [] Neurologic: Alert and oriented X 3, no focal deficits noted. [] Psychologic: Affect normal, judgement normal, mood normal. [] Current Patient Data Vital Signs Vital Signs Date Time Temp Pulse Resp B/P (MAP) Pulse Ox O2 Delivery O2 Flow Rate FiO2 05/26/19 05:34 Room Air 05/26/19 05:05 100.2 116 22 135/89 (104) 97 100.2 Lab Values Laboratory Tests Test 05/26/19 05:29 White Blood Count 21.6 x10^3/uL (4.0-11.0) H Red Blood Count 5.70 x10^6/uL (4.30-5.70) Hemoglobin 16.8 g/dL (13.0-17.5) Hematocrit 49.5 % (39.0-53.0) Mean Corpuscular Volume 87 fL (79-100) Mean Corpuscular Hemoglobin 30 pg (25-35) Mean Corpuscular Hemoglobin Concent 34 g/dL (31-37) Red Cell Distribution Width 13.8 % (11.5-14.5) Platelet Count 351 x10^3/uL (140-400) Neutrophils (%) (Auto) 88 % (31-73) H Lymphocytes (%) (Auto) 6 % (24-48) L Monocytes (%) (Auto) 6 % (0-9) Eosinophils (%) (Auto) 0 % (0-3) Basophils (%) (Auto) 0 % (0-3) Neutrophils # (Auto) 19.0 x10^3/uL (1.8-7.7) H Lymphocytes # (Auto) 1.2 x10^3/uL (1.0-4.8) Monocytes # (Auto) 1.3 x10^3/uL (0.0-1.1) H Eosinophils # (Auto) 0.0 x10^3/uL (0.0-0.7) Basophils # (Auto) 0.1 x10^3/uL (0.0-0.2) Platelet Estimate Pending Sodium Level 135 mmol/L (136-145) L Potassium Level 4.2 mmol/L (3.5-5.1) Chloride Level 97 mmol/L (98-107) L Carbon Dioxide Level 24 mmol/L (21-32) Anion Gap 14 (6-14) Blood Urea Nitrogen 52 mg/dL (8-26) H Creatinine 2.0 mg/dL (0.7-1.3) H Estimated GFR (Cockcroft-Gault) 36.8 BUN/Creatinine Ratio 26 (6-20) H Glucose Level 177 mg/dL (70-99) H Calcium Level 10.2 mg/dL (8.5-10.1) H Total Bilirubin 0.9 mg/dL (0.2-1.0) Aspartate Amino Transferase (AST) 42 U/L (15-37) H Alanine Aminotransferase (ALT) 34 U/L (16-63) Alkaline Phosphatase 74 U/L (46-116) Total Protein 9.5 g/dL (6.4-8.2) H Albumin 5.1 g/dL (3.4-5.0) H Albumin/Globulin Ratio 1.2 (1.0-1.7) Lipase 69 U/L (73-393) L Laboratory Tests 05/26/19 05:29 Laboratory Tests 05/26/19 05:29 EKG EKG [] Radiology/Procedures Radiology/Procedures KUB without acute process - wet read[] Course & Med Decision Making Course & Med Decision Making Pertinent Labs and Imaging studies reviewed. (See chart for details) []44-year-old male presents to the emergency department with complaints of abdominal pain, nausea, vomiting. Patient has underlying history of cyclic vomiting syndrome. He states this started approximately 4 days ago.. He denies any tobacco, drug use, diarrhea. Patient was last seen here in October for similar complaints. Nothing makes his symptoms worse, nothing makes his symptoms b lachelle. Patient describes pain as cramping, diffusely tender. IVF, Morphine 4mg/Zofran 4mg, Bentyl 10mg IM KUB reviewed - no evidence of acute obstructive process Patient improved after medications Labs reviewed - evidence of KOBE (creat 2.0) Plan admit, discussed with Hospitalist Diane Disclaimer Diane Disclaimer This electronic medical record was generated, in whole or in part, using a voice recognition dictation system. Departure Departure Impression: Primary Impression: Intractable nausea and vomiting Additional Impression: KOBE (acute kidney injury) Disposition: HOME, SELF-CARE Admitting Physician: JOEY Condition: IMPROVED Referrals: NO PCP (PCP) Problem Qualifiers JENNY DEWEY MD May 26, 2019 05:26
[2019-05-26] MEDS ORDERED: ONDANSETRON PF 4 MG/2 ML VIAL. IV ONE (05:30)
[2019-05-26] MEDS ORDERED: DICYCLOMINE 20 MG/2 ML AMPUL. IM ONE (05:30)
[2019-05-26] MEDS ORDERED: MORPHINE SULFATE 4 MG/ML VIAL. IV ONE (05:30)
[2019-05-26] MEDS ORDERED: IV NORMAL SALINE 1000ML BAG 1,000 ML IV SCH (05:30)
[2019-05-26 05:38] LABS: BASO # 0.1 x10^3/uL (0.0-0.2); BASO % 0 % (0-3); EOS % 0 % (0-3); HEMATOCRIT 49.5 % (39.0-53.0); HEMOGLOBIN 16.8 g/dL (13.0-17.5); LYMPH # 1.2 x10^3/uL (1.0-4.8); LYMPH % 6 % (24-48); MEAN CORPUSCULAR HEMOGLOBIN 30 pg (25-35); MEAN CORPUSCULAR HGB CONC 34 g/dL (31-37); MEAN CORPUSCULAR VOLUME 87 fL (79-100); MONO # 1.3 x10^3/uL (0.0-1.1); MONO % 6 % (0-9); NEUT % 88 % (31-73); PLATELET COUNT 351 x10^3/uL (140-400); RED CELL DISTRIBUTION WIDTH 13.8 % (11.5-14.5); WHITE BLOOD COUNT 21.6 x10^3/uL (4.0-11.0)
[2019-05-26 05:43] LABS: CALCIUM 10.2 mg/dL (8.5-10.1); GFR 36.8; POTASSIUM 4.2 mmol/L (3.5-5.1)
[2019-05-26 05:49] LABS: ALBUMIN 5.1 g/dL (3.4-5.0); ALBUMIN/GLOBULIN RATIO 1.2 (1.0-1.7); TOTAL BILIRUBIN 0.9 mg/dL (0.2-1.0); TOTAL PROTEIN 9.5 g/dL (6.4-8.2)
--- NOTE | 2019-05-26 06:00 | RAD ---
Exam: Abdomen one view INDICATION: Abdominal pain TECHNIQUE: Frontal view the abdomen Comparisons: None FINDINGS: Air and stool noted throughout the colon to level the rectum in a nonobstructive bowel gas pattern. No suspicious masses or calcifications. Visualized osseous structures are unremarkable. IMPRESSION: Nonobstructive bowel gas pattern. Electronically signed by: Keaton Corcoran MD (05/26/2019 5:57 AM) [id number]
[2019-05-26] MEDS ORDERED: IV NORMAL SALINE 1000ML BAG 1,000 ML IV ONE (06:15)
[2019-05-26] MEDS ORDERED: ONDANSETRON PF 4 MG/2 ML VIAL. IV PRN (06:15)
[2019-05-26 07:23] LABS: % BANDS 5 % (0-9); % LYMPHS 8 % (24-48); % MONOS 6 % (0-10); % SEGS 81 % (35-66); PLT ESTIMATE ADEQUATE (ADEQUATE)
[2019-05-26] MEDS: MORPHINE SULFATE 2 MG/ML VIAL. IV PRN ×4 (07:51→21:23)
[2019-05-26] MEDS ORDERED: ONDANSETRON ODT 4 MG TAB.RAPDIS. PO PRN (09:00)
[2019-05-26] MEDS ORDERED: ACETAMINOPHEN 500 MG TABLET PO PRN (09:00)
[2019-05-26] MEDS ORDERED: ACETAMINOPHEN/CODEINE 300/30MG TABLET. PO PRN (09:00)
[2019-05-26] MEDS ORDERED: LABETALOL 20 MG/4 ML DISP.SYRIN. IVP PRN (09:00)
[2019-05-26 09:05] VITALS: BP 144/95
[2019-05-26 11:00] VITALS: BP 139/78
--- NOTE | 2019-05-26 11:13 | PDOC1 ---
History and Physical Date of Admission Date of Admission DATE: 05/26/19 TIME: 11:07 Identification/Chief Complaint Chief Complaint vomiting, many times, unable to keep PO down Source Source: Caregiver, Chart review, Patient History of Present Illness History of Present Illness 44 yo white male, has had 20 yr hx of cyclic vomiting, he claims, has had multiple tests, non DM, has been vomiting for days also diarrhea, denies recent travel or sick contacts, LOW grade temp 100.2, WBC 21, not on steroids, HAs had trial of elavil in the past and zofran at home. KUB shows normal gas pattern, but he has MAYCOL creat 2.0 VMN< WBC 21, RUBI inc IVF, send UA and stool samples- dw RN les Willing to try some liquids for lunch Past Medical History Cardiovascular: No pertinent hx Pulmonary: No pertinent hx GI: GERD, Other Psych: No pertinent hx Musculoskeletal: Osteoarthritis Infectious disease: No pertinent hx Renal/: No pertinent hx Endocrine: No pertinent hx Past Surgical History Past Surgical History: Other Family History Family History: No Significant, Hypertension Social History Smoke: No ALCOHOL: none Drugs: Marijuana Current Problem List Problem List Problems Medical Problems: (1) KOBE (acute kidney injury) Status: Acute (2) Intractable nausea and vomiting Status: Acute Current Medications Current Medications Current Medications Sodium Chloride 1,000 ml @ 1,000 mls/hr Q1H IV Last administered on 05/26/19at 05:42; Start 05/26/19 at 05:30; Stop 05/26/19 at 06:29; Status DC Ondansetron HCl (Zofran) 4 mg 1X ONCE IV Last administered on 05/26/19at 05:34; Start 05/26/19 at 05:30; Stop 05/26/19 at 05:31; Status DC Morphine Sulfate (Morphine Sulfate) 4 mg 1X ONCE IV Last administered on 05/26/19at 05:34; Start 05/26/19 at 05:30; Stop 05/26/19 at 05:31; Status DC Dicyclomine HCl (Bentyl) 10 mg 1X ONCE IM Last administered on 05/26/19at 05:42; Start 05/26/19 at 05:30; Stop 05/26/19 at 05:31; Status DC Ondansetron HCl (Zofran) 4 mg PRN Q8HRS PRN IV NAUSEA/VOMITING; Start 05/26/19 at 06:15; Stop 05/27/19 at 06:14 Morphine Sulfate (Morphine Sulfate) 2 mg PRN Q2HR PRN IV PAIN Last administered on 05/26/19at 07:51; Start 05/26/19 at 06:15; Stop 05/27/19 at 06:14 Sodium Chloride 1,000 ml @ 100 mls/hr 1X ONCE IV Last administered on 9at 06:37; Start 05/26/19 at 06:15; Stop 05/26/19 at 16:14 Ondansetron HCl (Zofran) 4 mg PRN Q6HRS PRN IVP NAUSEA/VOMITING; Start 05/26/19 at 09:00 Prochlorperazine Edisylate (Compazine) 10 mg PRN Q6HRS PRN IV NAUSEA/VOMITING 2ND CHOICE; Start 05/26/19 at 09:00 Sodium Chloride 1,000 ml @ 125 mls/hr Q8H IV ; Start 05/26/19 at 09:00 Acetaminophen (Tylenol) 500 mg PRN Q6HRS PRN PO MILD PAIN / TEMP; Start 05/26/19 at 09:00 Acetaminophen/ Codeine Phosphate (Tylenol #3) 1 tab PRN Q6HRS PRN PO MODERATE PAIN; Start 05/26/19 at 09:00 Acetaminophen/ Hydrocodone Bitart (Lortab 7.5/325) 1 tab PRN Q4HRS PRN PO SEVERE PAIN; Start 05/26/19 at 09:00 Ondansetron HCl (Zofran Odt) 4 mg PRN Q6HRS PRN PO NAUSEA/VOMITING; Start 05/26/19 at 09:00 Labetalol HCl (Normodyne Iv Push) 20 mg PRN Q2HR PRN IVP HYPERTENSION; Start 05/26/19 at 09:00 Metoclopramide HCl (Reglan) 5 mg QIDACHS PO ; Start 05/26/19 at 11:30; Status UNV Active Scripts Active Hydrocodone-Apap 7.5-325 (Hydrocodone Bit/Acetaminophen) 1 Tab Tablet 1 Tab PO PRN Q4HRS PRN Zofran (Ondansetron Hcl) 4 Mg Tablet 1 Tab PO Q6HRS PRN Allergies Allergies: Coded Allergies: No Known Drug Allergies (Unverified , 09/25/15) ROS Review of System vomiting, diarrhea, abd dc, no cp, has low grade temp, no SOA< all else is neg Physical Exam General: No acute distress, Other (dry sallow skin, occasional dry heaving) HEENT: Atraumatic, PERRLA, EOMI Lungs: Clear to auscultation, Normal air movement Heart: S1S2, RRR, no thrills, no rubs, no gallops, no murmurs Cardiovascular: S1 Abdomen: Normal bowel sounds, Soft, No tenderness, No hepatosplenomegaly, No masses Male Genitals Exam: normal genitalia, normal prostate Rectal Exam: not examined PELVIC: Nml ext genitalia Extremities: No clubbing, No cyanosis, No edema, Normal pulses, No tenderness/swelling Skin: No rashes, No breakdown, No significant lesion Neuro: Normal gait, Normal speech, Strength at 5/5 X4 ext, Normal tone, Sensation intact, Cranial nerves 3-12 NL, Reflexes 2+ Psych/Mental Status: Mental status NL, Mood NL Vitals Vitals Vital Signs Date Time Temp Pulse Resp B/P (MAP) Pulse Ox O2 Delivery O2 Flow Rate FiO2 05/26/19 11:00 97.6 68 20 139/78 (98) 98 Room Air 97.6 Labs Labs Laboratory Tests Test 05/26/19 05:29 White Blood Count 21.6 x10^3/uL (4.0-11.0) Red Blood Count 5.70 x10^6/uL (4.30-5.70) Hemoglobin 16.8 g/dL (13.0-17.5) Hematocrit 49.5 % (39.0-53.0) Mean Corpuscular Volume 87 fL (79-100) Mean Corpuscular Hemoglobin 30 pg (25-35) Mean Corpuscular Hemoglobin Concent 34 g/dL (31-37) Red Cell Distribution Width 13.8 % (11.5-14.5) Platelet Count 351 x10^3/uL (140-400) Neutrophils (%) (Auto) 88 % (31-73) Lymphocytes (%) (Auto) 6 % (24-48) Monocytes (%) (Auto) 6 % (0-9) Eosinophils (%) (Auto) 0 % (0-3) Basophils (%) (Auto) 0 % (0-3) Neutrophils # (Auto) 19.0 x10^3/uL (1.8-7.7) Lymphocytes # (Auto) 1.2 x10^3/uL (1.0-4.8) Monocytes # (Auto) 1.3 x10^3/uL (0.0-1.1) Eosinophils # (Auto) 0.0 x10^3/uL (0.0-0.7) Basophils # (Auto) 0.1 x10^3/uL (0.0-0.2) Segmented Neutrophils % 81 % (35-66) Band Neutrophils % 5 % (0-9) Lymphocytes % 8 % (24-48) Monocytes % 6 % (0-10) Platelet Estimate Adequate (ADEQUATE) Sodium Level 135 mmol/L (136-145) Potassium Level 4.2 mmol/L (3.5-5.1) Chloride Level 97 mmol/L (98-107) Carbon Dioxide Level 24 mmol/L (21-32) Anion Gap 14 (6-14) Blood Urea Nitrogen 52 mg/dL (8-26) Creatinine 2.0 mg/dL (0.7-1.3) Estimated GFR (Cockcroft-Gault) 36.8 BUN/Creatinine Ratio 26 (6-20) Glucose Level 177 mg/dL (70-99) Calcium Level 10.2 mg/dL (8.5-10.1) Total Bilirubin 0.9 mg/dL (0.2-1.0) Aspartate Amino Transf (AST/SGOT) 42 U/L (15-37) Alanine Aminotransferase (ALT/SGPT) 34 U/L (16-63) Alkaline Phosphatase 74 U/L (46-116) Total Protein 9.5 g/dL (6.4-8.2) Albumin 5.1 g/dL (3.4-5.0) Albumin/Globulin Ratio 1.2 (1.0-1.7) Lipase 69 U/L (73-393) Laboratory Tests Test 05/26/19 05:29 White Blood Count 21.6 x10^3/uL (4.0-11.0) Red Blood Count 5.70 x10^6/uL (4.30-5.70) Hemoglobin 16.8 g/dL (13.0-17.5) Hematocrit 49.5 % (39.0-53.0) Mean Corpuscular Volume 87 fL (79-100) Mean Corpuscular Hemoglobin 30 pg (25-35) Mean Corpuscular Hemoglobin Concent 34 g/dL (31-37) Red Cell Distribution Width 13.8 % (11.5-14.5) Platelet Count 351 x10^3/uL (140-400) Neutrophils (%) (Auto) 88 % (31-73) Lymphocytes (%) (Auto) 6 % (24-48) Monocytes (%) (Auto) 6 % (0-9) Eosinophils (%) (Auto) 0 % (0-3) Basophils (%) (Auto) 0 % (0-3) Neutrophils # (Auto) 19.0 x10^3/uL (1.8-7.7) Lymphocytes # (Auto) 1.2 x10^3/uL (1.0-4.8) Monocytes # (Auto) 1.3 x10^3/uL (0.0-1.1) Eosinophils # (Auto) 0.0 x10^3/uL (0.0-0.7) Basophils # (Auto) 0.1 x10^3/uL (0.0-0.2) Segmented Neutrophils % 81 % (35-66) Band Neutrophils % 5 % (0-9) Lymphocytes % 8 % (24-48) Monocytes % 6 % (0-10) Platelet Estimate Adequate (ADEQUATE) Sodium Level 135 mmol/L (136-145) Potassium Level 4.2 mmol/L (3.5-5.1) Chloride Level 97 mmol/L (98-107) Carbon Dioxide Level 24 mmol/L (21-32) Anion Gap 14 (6-14) Blood Urea Nitrogen 52 mg/dL (8-26) Creatinine 2.0 mg/dL (0.7-1.3) Estimated GFR (Cockcroft-Gault) 36.8 BUN/Creatinine Ratio 26 (6-20) Glucose Level 177 mg/dL (70-99) Calcium Level 10.2 mg/dL (8.5-10.1) Total Bilirubin 0.9 mg/dL (0.2-1.0) Aspartate Amino Transf (AST/SGOT) 42 U/L (15-37) Alanine Aminotransferase (ALT/SGPT) 34 U/L (16-63) Alkaline Phosphatase 74 U/L (46-116) Total Protein 9.5 g/dL (6.4-8.2) Albumin 5.1 g/dL (3.4-5.0) Albumin/Globulin Ratio 1.2 (1.0-1.7) Lipase 69 U/L (73-393) VTE Prophylaxis Ordered VTE Prophylaxis Devices: Yes VTE Pharmacological Prophylaxi: Yes Assessment/Plan Assessment/Plan 1. Cyclic vomiting episode 2. NON DM 3,. KOBE, VMN 4, 2 day hx diarrhea PLAN: NOn tele bed ok Inc IVF rate to 125 Send for UA and stool recheck leukocytosis tmr HOld off abx for now REglan DINORA PO ELavil qhs (Sometimes helps with cyclic vomiting) FUll liq diet then ADAT MAy check hgba1c (BS 177- NPO status) dw RN les and pt other anti nausea/supportive meds BEJNA FERRARI MD May 26, 2019 11:12
[2019-05-26] MEDS: METOCLOPRAMIDE 10 MG TABLET. PO SCH ×3 (11:59→21:22)
[2019-05-26] MEDS: IV NORMAL SALINE 1000ML BAG 1,000 ML IV SCH ×3 (12:01→22:27)
[2019-05-26] MEDS: HYDROcodone/APAP 7.5/325MG 1 TAB TABLET PO PRN ×3 (12:04→21:22)
[2019-05-26] MEDS: ONDANSETRON PF 4 MG/2 ML VIAL. IVP PRN (12:07)
[2019-05-26 15:00] VITALS: BP 136/91
[2019-05-26] MEDS: PROCHLORPERAZINE 10 MG/2 ML VIAL. IV PRN (17:35)
[2019-05-26 19:00] VITALS: BP 109/70
[2019-05-26 19:06] LABS: BILIRUBIN,URINE NEGATIVE (NEG); CLARITY,URINE CLOUDY; COLOR,URINE YELLOW; NITRITE,URINE NEGATIVE (NEG); PROTEIN,URINE NEGATIVE (NEG-TRACE); UROBILINOGEN,URINE 0.2 mg/dL (0.2 mg/dL)
[2019-05-26 19:12] LABS: BACTERIA,URINE 0 /HPF (0-FEW); RBC,URINE RARE /HPF (0-2); WBC,URINE 0 /HPF (0-4)
[2019-05-26 19:13] LABS: BARBITURATES NEG (NEG); BENZODIAZEPINES NEG (NEG); CANNABINOIDS POS (NEG); COCAINE NEG (NEG); METHADONE NEG (NEG); OPIATES POS (NEG); PHENCYCLIDINE NEG (NEG)
[2019-05-26 19:14] LABS: AMPHETAMINE/METHAMPHETAMINE NEG (NEG)
[2019-05-26] MEDS ORDERED: AMITRIPTYLINE HCL 10 MG TABLET. PO SCH (21:00)
[2019-05-26 23:00] VITALS: BP 111/78
[2019-05-27] MEDS: MORPHINE SULFATE 2 MG/ML VIAL. IV PRN (02:45)
[2019-05-27] MEDS: HYDROcodone/APAP 7.5/325MG 1 TAB TABLET PO PRN ×3 (02:45→12:57)
[2019-05-27 02:50] VITALS: BP 125/90
[2019-05-27 05:50] LABS: BASO % 0 % (0-3); EOS % 0 % (0-3); HEMATOCRIT 41.4 % (39.0-53.0); HEMOGLOBIN 13.8 g/dL (13.0-17.5); LYMPH % 30 % (24-48); MEAN CORPUSCULAR HEMOGLOBIN 29 pg (25-35); MEAN CORPUSCULAR HGB CONC 33 g/dL (31-37); MEAN CORPUSCULAR VOLUME 89 fL (79-100); MONO % 11 % (0-9); NEUT # 5.8 x10^3/uL (1.8-7.7); NEUT % 59 % (31-73); PLATELET COUNT 265 x10^3/uL (140-400); RED BLOOD COUNT 4.68 x10^6/uL (4.30-5.70); RED CELL DISTRIBUTION WIDTH 13.8 % (11.5-14.5); WHITE BLOOD COUNT 9.9 x10^3/uL (4.0-11.0)
[2019-05-27 06:06] LABS: CALCIUM 8.1 mg/dL (8.5-10.1); CREATININE 1.2 mg/dL (0.7-1.3); GFR 66.4; POTASSIUM 3.7 mmol/L (3.5-5.1)
[2019-05-27 07:00] VITALS: BP 117/78
[2019-05-27] MEDS: METOCLOPRAMIDE 10 MG TABLET. PO SCH ×3 (08:21→16:30)
[2019-05-27] MEDS: ONDANSETRON PF 4 MG/2 ML VIAL. IVP PRN (08:21)
[2019-05-27] MEDS: IV NORMAL SALINE 1000ML BAG 1,000 ML IV SCH (09:00)
[2019-05-27] MEDS ORDERED: AMIT10TA PO (09:40)
[2019-05-27] MEDS ORDERED: HYDR-2765 PO (09:40)
[2019-05-27] MEDS ORDERED: METO10TA PO (09:40)
[2019-05-27] MEDS ORDERED: ONDA4TAB7 PO (09:40)
--- NOTE | 2019-05-27 09:41 | PDOC3 ---
Discharge Summary Visit Information Date of Admission: May 26, 2019 Date of Discharge: May 27, 2019 Admitting Diagnosis Comment: cyclic vomting Final Diagnosis Problems Medical Problems: (1) KOBE (acute kidney injury) Status: Acute (2) Intractable nausea and vomiting Status: Acute Brief Hospital Course Allergies Allergies Coded Allergies Type Severity Reaction Last Updated Verified No Known Drug Allergies 09/25/15 No Vital Signs Vital Signs Date Time Temp Pulse Resp B/P (MAP) Pulse Ox O2 Delivery O2 Flow Rate FiO2 05/27/19 08:21 20 Room Air 05/27/19 07:00 98.2 70 117/78 (91) 97 98.2 Lab Results Laboratory Tests Test 05/26/19 05:29 05/26/19 11:46 05/26/19 16:37 05/26/19 18:55 White Blood Count 21.6 x10^3/uL (4.0-11.0) Red Blood Count 5.70 x10^6/uL (4.30-5.70) Hemoglobin 16.8 g/dL (13.0-17.5) Hematocrit 49.5 % (39.0-53.0) Mean Corpuscular Volume 87 fL (79-100) Mean Corpuscular Hemoglobin 30 pg (25-35) Mean Corpuscular Hemoglobin Concent 34 g/dL (31-37) Red Cell Distribution Width 13.8 % (11.5-14.5) Platelet Count 351 x10^3/uL (140-400) Neutrophils (%) (Auto) 88 % (31-73) Lymphocytes (%) (Auto) 6 % (24-48) Monocytes (%) (Auto) 6 % (0-9) Eosinophils (%) (Auto) 0 % (0-3) Basophils (%) (Auto) 0 % (0-3) Neutrophils # (Auto) 19.0 x10^3/uL (1.8-7.7) Lymphocytes # (Auto) 1.2 x10^3/uL (1.0-4.8) Monocytes # (Auto) 1.3 x10^3/uL (0.0-1.1) Eosinophils # (Auto) 0.0 x10^3/uL (0.0-0.7) Basophils # (Auto) 0.1 x10^3/uL (0.0-0.2) Segmented Neutrophils % 81 % (35-66) Band Neutrophils % 5 % (0-9) Lymphocytes % 8 % (24-48) Monocytes % 6 % (0-10) Platelet Estimate Adequate (ADEQUATE) Sodium Level 135 mmol/L (136-145) Potassium Level 4.2 mmol/L (3.5-5.1) Chloride Level 97 mmol/L (98-107) Carbon Dioxide Level 24 mmol/L (21-32) Anion Gap 14 (6-14) Blood Urea Nitrogen 52 mg/dL (8-26) Creatinine 2.0 mg/dL (0.7-1.3) Estimated GFR (Cockcroft-Gault) 36.8 BUN/Creatinine Ratio 26 (6-20) Glucose Level 177 mg/dL (70-99) Calcium Level 10.2 mg/dL (8.5-10.1) Total Bilirubin 0.9 mg/dL (0.2-1.0) Aspartate Amino Transf (AST/SGOT) 42 U/L (15-37) Alanine Aminotransferase (ALT/SGPT) 34 U/L (16-63) Alkaline Phosphatase 74 U/L (46-116) Total Protein 9.5 g/dL (6.4-8.2) Albumin 5.1 g/dL (3.4-5.0) Albumin/Globulin Ratio 1.2 (1.0-1.7) Lipase 69 U/L (73-393) Glucose (Fingerstick) 122 mg/dL (70-99) 113 mg/dL (70-99) Urine Collection Type Unknown Urine Color Yellow Urine Clarity Cloudy Urine pH 6.0 Urine Specific Truman 1.010 Urine Protein Negative mg/dL (NEG-TRACE) Urine Glucose (UA) Negative mg/dL (NEG) Urine Ketones (Stick) Negative mg/dL (NEG) Urine Blood Trace (NEG) Urine Nitrite Negative (NEG) Urine Bilirubin Negative (NEG) Urine Urobilinogen Dipstick 0.2 mg/dL (0.2 mg/dL) Urine Leukocyte Esterase Negative (NEG) Urine RBC Rare /HPF (0-2) Urine WBC 0 /HPF (0-4) Urine Bacteria 0 /HPF (0-FEW) Urine Opiates Screen Pos (NEG) Urine Methadone Screen Neg (NEG) Urine Barbiturates Neg (NEG) Urine Phencyclidine Screen Neg (NEG) Urine Amphetamine/Methamphetamine Neg (NEG) Urine Benzodiazepines Screen Neg (NEG) Urine Cocaine Screen Neg (NEG) Urine Cannabinoids Screen Pos (NEG) Urine Ethyl Alcohol Neg (NEG) Test 05/26/19 20:42 05/27/19 05:35 Glucose (Fingerstick) 93 mg/dL (70-99) White Blood Count 9.9 x10^3/uL (4.0-11.0) Red Blood Count 4.68 x10^6/uL (4.30-5.70) Hemoglobin 13.8 g/dL (13.0-17.5) Hematocrit 41.4 % (39.0-53.0) Mean Corpuscular Volume 89 fL (79-100) Mean Corpuscular Hemoglobin 29 pg (25-35) Mean Corpuscular Hemoglobin Concent 33 g/dL (31-37) Red Cell Distribution Width 13.8 % (11.5-14.5) Platelet Count 265 x10^3/uL (140-400) Neutrophils (%) (Auto) 59 % (31-73) Lymphocytes (%) (Auto) 30 % (24-48) Monocytes (%) (Auto) 11 % (0-9) Eosinophils (%) (Auto) 0 % (0-3) Basophils (%) (Auto) 0 % (0-3) Neutrophils # (Auto) 5.8 x10^3/uL (1.8-7.7) Lymphocytes # (Auto) 3.0 x10^3/uL (1.0-4.8) Monocytes # (Auto) 1.0 x10^3/uL (0.0-1.1) Eosinophils # (Auto) 0.0 x10^3/uL (0.0-0.7) Basophils # (Auto) 0.0 x10^3/uL (0.0-0.2) Sodium Level 139 mmol/L (136-145) Potassium Level 3.7 mmol/L (3.5-5.1) Chloride Level 103 mmol/L (98-107) Carbon Dioxide Level 31 mmol/L (21-32) Anion Gap 5 (6-14) Blood Urea Nitrogen 19 mg/dL (8-26) Creatinine 1.2 mg/dL (0.7-1.3) Estimated GFR (Cockcroft-Gault) 66.4 Glucose Level 96 mg/dL (70-99) Calcium Level 8.1 mg/dL (8.5-10.1) Laboratory Tests Test 05/26/19 11:46 05/26/19 16:37 05/26/19 18:55 05/26/19 20:42 Glucose (Fingerstick) 122 mg/dL (70-99) 113 mg/dL (70-99) 93 mg/dL (70-99) Urine Collection Type Unknown Urine Color Yellow Urine Clarity Cloudy Urine pH 6.0 Urine Specific Truman 1.010 Urine Protein Negative mg/dL (NEG-TRACE) Urine Glucose (UA) Negative mg/dL (NEG) Urine Ketones (Stick) Negative mg/dL (NEG) Urine Blood Trace (NEG) Urine Nitrite Negative (NEG) Urine Bilirubin Negative (NEG) Urine Urobilinogen Dipstick 0.2 mg/dL (0.2 mg/dL) Urine Leukocyte Esterase Negative (NEG) Urine RBC Rare /HPF (0-2) Urine WBC 0 /HPF (0-4) Urine Bacteria 0 /HPF (0-FEW) Urine Opiates Screen Pos (NEG) Urine Methadone Screen Neg (NEG) Urine Barbiturates Neg (NEG) Urine Phencyclidine Screen Neg (NEG) Urine Amphetamine/Methamphetamine Neg (NEG) Urine Benzodiazepines Screen Neg (NEG) Urine Cocaine Screen Neg (NEG) Urine Cannabinoids Screen Pos (NEG) Urine Ethyl Alcohol Neg (NEG) Test 05/27/19 05:35 White Blood Count 9.9 x10^3/uL (4.0-11.0) Red Blood Count 4.68 x10^6/uL (4.30-5.70) Hemoglobin 13.8 g/dL (13.0-17.5) Hematocrit 41.4 % (39.0-53.0) Mean Corpuscular Volume 89 fL (79-100) Mean Corpuscular Hemoglobin 29 pg (25-35) Mean Corpuscular Hemoglobin Concent 33 g/dL (31-37) Red Cell Distribution Width 13.8 % (11.5-14.5) Platelet Count 265 x10^3/uL (140-400) Neutrophils (%) (Auto) 59 % (31-73) Lymphocytes (%) (Auto) 30 % (24-48) Monocytes (%) (Auto) 11 % (0-9) Eosinophils (%) (Auto) 0 % (0-3) Basophils (%) (Auto) 0 % (0-3) Neutrophils # (Auto) 5.8 x10^3/uL (1.8-7.7) Lymphocytes # (Auto) 3.0 x10^3/uL (1.0-4.8) Monocytes # (Auto) 1.0 x10^3/uL (0.0-1.1) Eosinophils # (Auto) 0.0 x10^3/uL (0.0-0.7) Basophils # (Auto) 0.0 x10^3/uL (0.0-0.2) Sodium Level 139 mmol/L (136-145) Potassium Level 3.7 mmol/L (3.5-5.1) Chloride Level 103 mmol/L (98-107) Carbon Dioxide Level 31 mmol/L (21-32) Anion Gap 5 (6-14) Blood Urea Nitrogen 19 mg/dL (8-26) Creatinine 1.2 mg/dL (0.7-1.3) Estimated GFR (Cockcroft-Gault) 66.4 Glucose Level 96 mg/dL (70-99) Calcium Level 8.1 mg/dL (8.5-10.1) Brief Hospital Course Mr. Seaman is a 44 old admitted for cyclic vomiting flare manifested by some elyte abN, HE has tried elavil before, has zofran etc, HE has this for 20 yrs, NON dm, BEtter after OBS overnight stay with supportive mx HOme today, on reglan, zofran, elavil and pain meds NO consults NO PRoc done Time < 30 SP status Discharge Information Condition at Discharge: Improved, Stable Disposition/Orders: D/C to Home Scheduled Amitriptyline Hcl (Amitriptyline Hcl) 10 Mg Tablet, 10 MG PO QHS for cyclic vomintg, #30 Prescribed by: BENJA FERRARI on 05/27/19 0940 Metoclopramide Hcl (Metoclopramide Hcl) 10 Mg Tablet, 5 MG PO QIDACHS for n/emesis, #30 Prescribed by: BENJA FERRARI on 05/27/19 0940 Scheduled PRN Hydrocodone Bit/Acetaminophen (Hydrocodone-Apap 7.5-325 ) 1 Tab Tablet, 1 TAB PO PRN Q4HRS PRN for PAIN, #20 Prescribed by: BENJA FERRARI on 05/27/19 0940 Ondansetron Hcl (Zofran) 4 Mg Tablet, 1 TAB PO Q6HRS PRN for NAUSEA, #60 Prescribed by: BENJA FERRARI on 05/27/19 0940 BENJA FERRARI MD May 27, 2019 09:41
[2019-05-27 11:00] VITALS: BP 116/78
[2019-05-27] MEDS: PROCHLORPERAZINE 10 MG/2 ML VIAL. IV PRN (12:58)
[2019-05-27 15:00] VITALS: BP 127/85
--- NOTE | 2019-05-27 16:35 | NUR ---
Discharge teaching completed. IV site discontinued without difficulty. Pt states he understands his discharge teaching and follow-up instructions and home medications. He has four prescriptions in hand. He was escorted out by staff, ambulatory with his family. Discharge to home.
[2019-05-28 04:07] LABS: HEMOGLOBIN A1C 5.4 % (4.8-5.6)
== END 2019-05-27 16:40 | disposition home or self-care (01) | DRG 393 ==
LOC: ER 04:56 → 4 NORTH 06:46 → OBSVTOIN 06:57 → UNDODISOB 05-27 16:40
PROVIDERS: ADMIT Internal Medicine; ATTEND Internal Medicine
DX: R11.15 Cyclical vomiting syndrome unrelated to migraine (principal); N17.0 Acute kidney failure with tubular necrosis; E11.9 Type 2 diabetes mellitus without complications; K21.9 Gastro-esophageal reflux disease without esophagitis; M19.90 Unspecified osteoarthritis, unspecified site; Z87.11 Personal history of peptic ulcer disease; Z82.49 Family history of ischemic heart disease and other diseases of the circulatory system
CPT/HCPCS: 36415; 74018; 80048; 80053; 80307; 81001; 82962; 83036; 83690; 85007; 85025; G0378; G0379; J0500; J0780; J2270; J2405; J7030; J8597

== ENCOUNTER 2019-09-24 05:58 | Emergency (ER) | payer SELFPAY ==
[~2019-09-24] VITALS: Ht 167.6 cm; Wt 70.0 kg
[~2019-09-24 05:58] MED LIST changes: +AMIT10TA PO; +METO10TA PO
[2019-09-24 06:21] LABS: BASO % 0 % (0-3); EOS % 0 % (0-3); HEMATOCRIT 48.3 % (39.0-53.0); LYMPH # 0.9 x10^3/uL (1.0-4.8); LYMPH % 5 % (24-48); MEAN CORPUSCULAR HEMOGLOBIN 29 pg (25-35); MEAN CORPUSCULAR HGB CONC 33 g/dL (31-37); MEAN CORPUSCULAR VOLUME 87 fL (79-100); MONO # 0.8 x10^3/uL (0.0-1.1); MONO % 4 % (0-9); NEUT # 17.4 x10^3/uL (1.8-7.7); NEUT % 91 % (31-73); PLATELET COUNT 337 x10^3/uL (140-400); RED BLOOD COUNT 5.55 x10^6/uL (4.30-5.70); RED CELL DISTRIBUTION WIDTH 13.9 % (11.5-14.5); WHITE BLOOD COUNT 19.1 x10^3/uL (4.0-11.0)
[2019-09-24 06:22] LABS: BASO # 0.1 x10^3/uL (0.0-0.2)
[2019-09-24] MEDS ORDERED: HALOPERIDOL LACTATE 5 MG/ML VIAL. IVP ONE (06:30)
[2019-09-24] MEDS ORDERED: IV NORMAL SALINE 1000ML BAG 1,000 ML IV ONE (06:30)
[2019-09-24 06:37] VITALS: BP 150/57
[2019-09-24 06:48] LABS: CALCIUM 9.5 mg/dL (8.5-10.1); CREATININE 1.7 mg/dL (0.7-1.3); GFR 44.4; POTASSIUM 3.8 mmol/L (3.5-5.1)
[2019-09-24 06:52] LABS: ALBUMIN 4.6 g/dL (3.4-5.0); ALBUMIN/GLOBULIN RATIO 1.2 (1.0-1.7); TOTAL PROTEIN 8.4 g/dL (6.4-8.2)
--- NOTE | 2019-09-24 07:01 | PHYS DOC ---
Past Medical History Past Medical History: Other Additional Past Medical Histor: cyclic vomiting Past Surgical History: No Surgical History Smoking Status: Current Every Day Smoker Alcohol Use: None Drug Use: Marijuana General Adult EDM: Chief Complaint: NAUSEA/VOMITING/DIARRHA HPI: HPI: Patient is a 44-year-old male with a history of cyclic vomiting syndrome he states 2 or 3 times a year he gets nausea and vomiting that he just cannot control. He does occasionally use marijuana. He states this particular episode has been ongoing for the last 3 or 4 days. He states his been unable to keep anything down at all. He denies any fever chills or sweats. He denies any m sameer or hematemesis. He does admit to some abdominal cramping but no significant pain. [] Review of Systems: Review of Systems: Constitutional: Denies fever or chills. [] Eyes: Denies change in visual acuity. [] HENT: Denies nasal congestion or sore throat. [] Respiratory: Denies cough or shortness of breath. [] Cardiovascular: Denies chest pain or edema. [] GI: Per HPI [] : Denies dysuria. [] Musculoskeletal: Denies back pain or joint pain. [] Integument: Denies rash. [] Neurologic: Denies headache, focal weakness or sensory changes. [] Endocrine: Denies polyuria or polydipsia. [] Lymphatic: Denies swollen glands. [] Psychiatric: Reports anxiety. [] Heart Score: Risk Factors: Risk Factors: DM, Current or recent (<one month) smoker, HTN, HLP, family history of CAD, obesity. Risk Scores: Score 0 - 3: 2.5% MACE over next 6 weeks - Discharge Home Score 4 - 6: 20.3% MACE over next 6 weeks - Admit for Clinical Observation Score 7 - 10: 72.7% MACE over next 6 weeks - Early Invasive Strategies Current Medications: Current Medications Medications (Trade) Dose Ordered Sig/Lauren Start Time Stop Time Status Last Admin Dose Admin Haloperidol Lactate (Haldol Inj) 5 mg 1X ONCE 09/24/19 06:30 09/24/19 06:31 DC 09/24/19 06:19 5 MG Sodium Chloride 1,000 ml @ 1,000 mls/hr 1X ONCE 09/24/19 06:30 09/24/19 07:29 09/24/19 06:20 1,000 MLS/HR Allergies: Allergies: Allergies Coded Allergies Type Severity Reaction Last Updated Verified No Known Drug Allergies 09/25/15 No Physical Exam: PE: Constitutional: Well developed, well nourished, mild distress, non-toxic appearance. [] HENT: Normocephalic, atraumatic, bilateral external ears normal, oropharynx moist, no oral exudates, nose normal. [] Eyes: PERRLA, EOMI, conjunctiva normal, no discharge. [] Neck: Normal range of motion, no tenderness, supple, no stridor. [] Cardiovascular:Heart rate regular rhythm, no murmur [] Lungs & Thorax: Bilateral breath sounds clear to auscultation [] Abdomen: Diffusely tender to palp no rebound or guarding. [] Skin: Warm, dry, no erythema, no rash. [] Back: No tenderness, no CVA tenderness. [] Extremities: No tenderness, no cyanosis, no clubbing, ROM intact, no edema. [] Neurologic: Alert and oriented X 3, normal motor function, normal sensory function, no focal deficits noted. [] Psychologic: Extremely anxious [] Current Patient Data: Labs: Laboratory Tests Test 09/24/19 06:10 White Blood Count 19.1 x10^3/uL (4.0-11.0) H Red Blood Count 5.55 x10^6/uL (4.30-5.70) Hemoglobin 16.0 g/dL (13.0-17.5) Hematocrit 48.3 % (39.0-53.0) Mean Corpuscular Volume 87 fL (79-100) Mean Corpuscular Hemoglobin 29 pg (25-35) Mean Corpuscular Hemoglobin Concent 33 g/dL (31-37) Red Cell Distribution Width 13.9 % (11.5-14.5) Platelet Count 337 x10^3/uL (140-400) Neutrophils (%) (Auto) 91 % (31-73) H Lymphocytes (%) (Auto) 5 % (24-48) L Monocytes (%) (Auto) 4 % (0-9) Eosinophils (%) (Auto) 0 % (0-3) Basophils (%) (Auto) 0 % (0-3) Neutrophils # (Auto) 17.4 x10^3/uL (1.8-7.7) H Lymphocytes # (Auto) 0.9 x10^3/uL (1.0-4.8) L Monocytes # (Auto) 0.8 x10^3/uL (0.0-1.1) Eosinophils # (Auto) 0.0 x10^3/uL (0.0-0.7) Basophils # (Auto) 0.1 x10^3/uL (0.0-0.2) Platelet Estimate Pending Sodium Level 138 mmol/L (136-145) Potassium Level 3.8 mmol/L (3.5-5.1) Chloride Level 99 mmol/L (98-107) Carbon Dioxide Level 27 mmol/L (21-32) Anion Gap 12 (6-14) Blood Urea Nitrogen 34 mg/dL (8-26) H Creatinine 1.7 mg/dL (0.7-1.3) H Estimated GFR (Cockcroft-Gault) 44.4 BUN/Creatinine Ratio 20 (6-20) Glucose Level 164 mg/dL (70-99) H Calcium Level 9.5 mg/dL (8.5-10.1) Total Bilirubin 1.0 mg/dL (0.2-1.0) Aspartate Amino Transferase (AST) 18 U/L (15-37) Alanine Aminotransferase (ALT) 29 U/L (16-63) Alkaline Phosphatase 67 U/L (46-116) Total Protein 8.4 g/dL (6.4-8.2) H Albumin 4.6 g/dL (3.4-5.0) Albumin/Globulin Ratio 1.2 (1.0-1.7) Lipase 73 U/L (73-393) Laboratory Tests 09/24/19 06:10 Laboratory Tests 09/24/19 06:10 Vital Signs: Vital Signs Date Time Temp Pulse Resp B/P (MAP) Pulse Ox O2 Delivery O2 Flow Rate FiO2 09/24/19 06:37 76 23 150/57 (88) 96 Room Air 09/24/19 06:05 98.0 98.0 EKG: EKG: [] Radiology/Procedures: Radiology/Procedures: [] Impression: PROCEDURE: CT ABDOMEN PELVIS WO CONTRAST EXAM: CT ABDOMEN/PELVIS WITHOUT CONTRAST. HISTORY: Mid abdominal pain. TECHNIQUE: Computed tomography of the abdomen and pelvis was performed without intravenous contrast. One or more of the following individualized dose reduction techniques were utilized for this examination: 1. Automated exposure control. 2. Adjustment of the mA and/or kV according to patient size. 3. Use of iterative reconstruction technique. COMPARISON: 10/21/2018. FINDINGS: Lung windows through the visualized portions of the bases reveal mild atelectasis. Bone windows reveal no suspicious lesions. The gallbladder is surgically absent. The liver, pancreas, adrenal glands, spleen and kidneys are unremarkable without contrast. The transverse and left colon are decompressed but there is suggestion of mild wall thickening. The appendix is not inflamed. There is no small bowel obstruction. There are no pathologically enlarged lymph nodes. IMPRESSION: 1. Mild left colonic wall thickening. Correlate for colitis. Course & Med Decision Making: Course & Med Decision Making Pertinent Labs and Imaging studies reviewed. (See chart for details) [ED course: Evaluation reveals a 44-year-old male with cyclic vomiting syndrome. This is a recurring problem for the patient. During his stay in the emergency department he was given 5 mg of Haldol IV along with 1 L of IV normal saline which did alleviate his symptoms. I encouraged him to drink plenty of fluids we will give him some promethazine to take at home encouraged him to stop smoking marijuana altogether. Return to the emergency department if he develops any further problems.] Diane Disclaimer: Diane Disclaimer: This electronic medical record was generated, in whole or in part, using a voice recognition dictation system. Departure Departure Impression: Primary Impression: Cyclical vomiting Disposition: 01 HOME, SELF-CARE Condition: IMPROVED Referrals: NO PCP (PCP) Patient Instructions: Cyclic Vomiting Syndrome Scripts Promethazine Hcl (PROMETHAZINE HCL) 25 Mg Tablet 1 TAB PO PRN Q6HRS for NAUSEA, #20 TAB Prov: DIVYA BALDERRAMA DO 09/24/19 DIVYA BALDERRAMA DO Sep 24, 2019 07:01
--- NOTE | 2019-09-24 07:57 | RAD ---
EXAM: CT ABDOMEN/PELVIS WITHOUT CONTRAST. HISTORY: Mid abdominal pain. TECHNIQUE: Computed tomography of the abdomen and pelvis was performed without intravenous contrast. One or more of the following individualized dose reduction techniques were utilized for this examination: 1. Automated exposure control. 2. Adjustment of the mA and/or kV according to patient size. 3. Use of iterative reconstruction technique. COMPARISON: 10/21/2018. FINDINGS: Lung windows through the visualized portions of the bases reveal mild atelectasis. Bone windows reveal no suspicious lesions. The gallbladder is surgically absent. The liver, pancreas, adrenal glands, spleen and kidneys are unremarkable without contrast. The transverse and left colon are decompressed but there is suggestion of mild wall thickening. The appendix is not inflamed. There is no small bowel obstruction. There are no pathologically enlarged lymph nodes. IMPRESSION: 1. Mild left colonic wall thickening. Correlate for colitis. Electronically signed by: Nicolasa Cisneros MD (09/24/2019 7:54 AM) [id number]
[2019-09-24] MEDS ORDERED: PROM25TA10 PO (08:02)
[2019-09-24 08:40] LABS: % LYMPHS 4 % (24-48); % MONOS 7 % (0-10); % SEGS 89 % (35-66); PLT ESTIMATE ADEQUATE (ADEQUATE)
== END 2019-09-24 08:10 | disposition home or self-care (01) ==
LOC: ER 05:58
DX: R11.2 Nausea with vomiting, unspecified (principal); R10.9 Unspecified abdominal pain; F41.8 Other specified anxiety disorders; F17.200 Nicotine dependence, unspecified, uncomplicated; F12.90 Cannabis use, unspecified, uncomplicated
CPT/HCPCS: 36415; 74176; 80053; 83690; 85007; 85025; 96361; 96374; 99284; J1630; J7030

== ENCOUNTER 2020-02-20 21:22 | Emergency (ER) | payer SELFPAY ==
[2020-02-20 21:22] VITALS: BP 132/111
[~2020-02-20 21:22] MED LIST changes: +PROM25TA10 PO
[2020-02-21] MEDS ORDERED: PROP20TA PO ×2 (14:08)
[2020-02-21] MEDS ORDERED: TRAZ-118 PO (14:08)
== END 2020-02-20 23:26 | disposition left against medical advice (07) ==
LOC: ER 21:22
DX: R11.2 Nausea with vomiting, unspecified (principal); Z53.21 Procedure and treatment not carried out due to patient leaving prior to being seen by health care provider

== ENCOUNTER 2020-04-15 14:31 | Emergency (ER) | payer SELFPAY ==
[~2020-04-15] VITALS: Ht 167.6 cm; Wt 54.0 kg
[~2020-04-15 14:31] MED LIST changes: +PROP20TA PO; +TRAZ-118 PO
[2020-04-15 15:24] VITALS: BP 159/87
[2020-04-15] MEDS ORDERED: FAMOTIDINE 20 MG/2 ML VIAL IVP ONE (15:45)
[2020-04-15] MEDS ORDERED: diphenhydrAMINE 50 MG/ML VIAL IVP ONE (15:45)
[2020-04-15] MEDS ORDERED: IV NORMAL SALINE 1000ML BAG 1,000 ML IV ONE (15:45)
[2020-04-15] MEDS ORDERED: KETOROLAC 15 MG/ML VIAL. IVP ONE (15:45)
[2020-04-15] MEDS ORDERED: METOCLOPRAMIDE HCL 10 MG/2 ML VIAL. IVP ONE (15:45)
--- NOTE | 2020-04-15 16:11 | PHYS DOC ---
Past Medical History Past Medical History: Other Additional Past Medical Histor: cyclic vomiting Past Surgical History: Cholecystectomy Smoking Status: Current Some Day Smoker Alcohol Use: None Drug Use: Marijuana General Adult EDM: Chief Complaint: NAUSEA/VOMITING/DIARRHA HPI: HPI: Patient is a 44 year old male who presents with nausea and vomiting that started on Tuesday. He states he has vomited 40 times today and 20-30 times yesterday. Patient also reports epigastric pain that is sharp and consistent. He was admitted in the ER with a similar presentation last week. Hx of "bleeding ulcers in stomach". Review of Systems: Review of Systems: Constitutional: Denies fever or chills Eyes: Denies redness or eye pain HENT: Denies nasal congestion or sore throat Respiratory: Denies cough or shortness of breath Cardiovascular: Denies chest pain or palpitations GI: Reports abdominal pain, nausea, and vomiting. Denies diarrhea. : Denies dysuria or hematuria Musculoskeletal: Denies back pain or joint pain Integument: Denies rash or skin lesions Neurologic: Denies headache, focal weakness or sensory changes Complete systems were reviewed and found to be within normal limits, except as documented in this note. Current Medications: Current Medications Medications (Trade) Dose Ordered Sig/Lauren Start Time Stop Time Status Last Admin Dose Admin Diphenhydramine HCl (Benadryl) 25 mg 1X ONCE 04/15/20 15:45 04/15/20 15:46 DC Famotidine (Pepcid Vial) 20 mg 1X ONCE 04/15/20 15:45 04/15/20 15:46 DC Ketorolac Tromethamine (Toradol 15mg Vial) 15 mg 1X ONCE 04/15/20 15:45 04/15/20 15:46 DC Metoclopramide HCl (Reglan Vial) 10 mg 1X ONCE 04/15/20 15:45 04/15/20 15:46 DC Sodium Chloride 1,000 ml @ 1,000 mls/hr 1X ONCE 04/15/20 15:45 04/15/20 16:44 Allergies: Allergies: Allergies Coded Allergies Type Severity Reaction Last Updated Verified No Known Drug Allergies 09/25/15 No Physical Exam: PE: Constitutional: Well developed, well nourished, non-toxic appearance HENT: Normocephalic, atraumatic Eyes: Conjunctiva normal, no discharge Neck: Normal range of motion, no tenderness, supple Lungs & Thorax: No respiratory distress, equal chest rise and fall Abdomen: Reports tenderness. Skin: Warm, dry, no erythema, no rash Back: No tenderness, no CVA tenderness Extremities: No tenderness, ROM intact, no edema Neurologic: Alert and oriented X 3, normal motor function, normal sensory function, no focal deficits noted Psychologic: Affect normal, judgment normal Current Patient Data: Vital Signs: Vital Signs Date Time Temp Pulse Resp B/P (MAP) Pulse Ox O2 Delivery O2 Flow Rate FiO2 04/15/20 15:24 98.4 80 24 159/87 (111) 97 Room Air 98.4 Course & Med Decision Making: Course & Med Decision Making Patient is a 44 year old male presenting with nausea, vomiting, and epigastric pain. History of marijuana use and cyclic vomiting. Patient has known history of CT imaging for similar episodes in the past. He reports having 4 CTs this year so imaging was withheld at todays visit due to risks outweighing the benefits of radiation exposure. Blood drawn and UA collected. Zofran and Ketorolac given today. Dragon Disclaimer: Dragon Disclaimer: This electronic medical record was generated, in whole or in part, using a voice recognition dictation system. Departure Departure Impression: Primary Impression: Cyclical vomiting Disposition: 01 DC HOME SELF CARE/HOMELESS Condition: STABLE Referrals: NO PCP (PCP) PEREZ ARCINIEGA MD Patient Instructions: Cyclic Vomiting Syndrome Scripts Capsaicin (CAPSAICIN) 42.5 Gm Cream..g. 1 MORGAN TP TID PRN for PAIN, #1 TUBE 0 Refills Apply to abdomen at site of discomfort. Prov: GABRIELLA BARRERA DO 04/15/20 Hyoscyamine Sulfate (LEVSIN-SL) 0.125 Mg Tab.subl 0.125 MG SL Q4-6HRS PRN for PAIN, #14 TAB Prov: GABRIELLA BARRERA DO 04/15/20 Promethazine Hcl (PROMETHAZINE HCL) 25 Mg Supp.rect 25 MG RC Q6H PRN for NAUSEA/VOMITING, #10 SUPP.RECT Prov: GABRIELLA BARRERA DO 04/15/20 Ondansetron (ONDANSETRON ODT) 4 Mg Tab.rapdis 1 TAB PO PRN Q6-8HRS PRN for NAUSEA, #16 TAB Prov: GABRIELLA BARRERA DO 04/15/20 GABRIELLA BARRERA 17, 2020 16:11
[2020-04-15 16:22] LABS: BASO # 0.1 x10^3/uL (0.0-0.2); BASO % 0 % (0-3); EOS % 0 % (0-3); HEMATOCRIT 46.2 % (39.0-53.0); HEMOGLOBIN 15.7 g/dL (13.0-17.5); LYMPH # 0.9 x10^3/uL (1.0-4.8); LYMPH % 6 % (24-48); MEAN CORPUSCULAR HEMOGLOBIN 29 pg (25-35); MEAN CORPUSCULAR HGB CONC 34 g/dL (31-37); MEAN CORPUSCULAR VOLUME 86 fL (79-100); MONO # 1.1 x10^3/uL (0.0-1.1); MONO % 7 % (0-9); NEUT # 13.4 x10^3/uL (1.8-7.7); NEUT % 87 % (31-73); PLATELET COUNT 382 x10^3/uL (140-400); RED BLOOD COUNT 5.36 x10^6/uL (4.30-5.70); RED CELL DISTRIBUTION WIDTH 13.8 % (11.5-14.5); WHITE BLOOD COUNT 15.4 x10^3/uL (4.0-11.0)
[2020-04-15 16:41] LABS: CALCIUM 10.4 mg/dL (8.5-10.1); CREATININE 1.3 mg/dL (0.7-1.3); GFR 60.5; POTASSIUM 3.4 mmol/L (3.5-5.1)
[2020-04-15 16:47] LABS: ALBUMIN 4.8 g/dL (3.4-5.0); ALBUMIN/GLOBULIN RATIO 1.3 (1.0-1.7); MAGNESIUM 2.4 mg/dL (1.8-2.4); TOTAL BILIRUBIN 0.9 mg/dL (0.2-1.0); TOTAL PROTEIN 8.5 g/dL (6.4-8.2)
[2020-04-15 17:20] LABS: % BANDS 1 % (0-9); % LYMPHS 3 % (24-48); % MONOS 3 % (0-10); % SEGS 93 % (35-66); PLT ESTIMATE ADEQUATE (ADEQUATE); TOXIC GRANULATION SLIGHT
[2020-04-15] MEDS ORDERED: ONDA4TAB12 PO (18:22)
[2020-04-15] MEDS ORDERED: CAPS42.514 TP (18:22)
[2020-04-15] MEDS ORDERED: HYOS0.1265 SL (18:22)
[2020-04-15] MEDS ORDERED: PROM25SU33 RC (18:22)
[2020-04-15] MEDS ORDERED: ONDANSETRON PF 4 MG/2 ML VIAL. IVP ONE (18:30)
[2020-04-15] MEDS ORDERED: fentaNYL PF VIAL 100 MCG/2 ML VIAL IV ONE (18:30)
== END 2020-04-15 18:49 | disposition home or self-care (01) ==
LOC: ER 14:31
DX: R11.2 Nausea with vomiting, unspecified (principal); R10.13 Epigastric pain; F12.90 Cannabis use, unspecified, uncomplicated; F17.200 Nicotine dependence, unspecified, uncomplicated; Z90.49 Acquired absence of other specified parts of digestive tract
CPT/HCPCS: 36415; 80053; 83735; 85007; 85025; 96361; 96374; 96375; 99284; G0480; J1200; J1885; J2405; J2765; J3010; J3490; J7030

== ENCOUNTER 2021-02-12 00:21 | Emergency (ER) | payer OTHER ==
[2020-09-18 15:00] VITALS: BP 122/86
[~2021-02-12 00:21] MED LIST changes: +AMIT75TA PO; +CAPS42.514 TP; +ERYT500T17 PO; +HYOS0.1265 SL; +ONDA4TAB12 PO; +PROM25SU33 RC
== END 2021-02-12 03:09 | disposition left against medical advice (07) ==
LOC: ER 00:21
DX: R11.10 Vomiting, unspecified (principal); R10.9 Unspecified abdominal pain; Z53.21 Procedure and treatment not carried out due to patient leaving prior to being seen by health care provider